=== PATIENT | female | born 1940 | race Caucasian/White ===

== ENCOUNTER 2018-03-25 20:23 | Emergency (ER) | payer OTHER ==
[~2018-03-25] VITALS: Ht 157.5 cm; Wt 61.2 kg
[~2018-03-25 20:23] MED LIST: ALBU.083IS IH; ALBU3IS INH; ALBU90OI INH; Duoneb 2.5-0.5 M3 ML INH; FLUSAL2505 IH; Guaifenesin Dm118 ML PO; Prednisone20 MG PO; Ventolin Soln3 ML INH; Zithromax250 MG PO
[2018-03-25 21:01] LABS: BASOPHILS ABSOLUTE AUTO 0.02 K/mm3 (0.00-0.23); BASOPHILS PERCENT AUTO 0 % (0-2); EOSINOPHILS ABSOLUTE AUTO 0.43 K/mm3 (0.00-0.68); EOSINOPHILS PERCENT AUTO 6 % (0-6); Hematocrit 36.4 % (33.0-51.0); Hemoglobin 12.2 g/dL (11.5-16.0); IMMATURE GRAN ABSOLUTE AUTO 0.01 K/mm3 (0.00-0.10); IMMATURE GRAN PERCENT AUTO 0 % (0-1); LYMPHOCYTES ABSOLUTE AUTO 2.57 K/mm3 (0.84-5.20); LYMPHOCYTES PERCENT AUTO 33 % (21-46); MONOCYTES ABSOLUTE AUTO 0.81 K/mm3 (0.16-1.47); MONOCYTES PERCENT AUTO 10 % (4-13); Mean Corpuscular HGB Conc 33.5 g/dL (31.5-36.5); Mean Corpuscular Volume 96 fL (80-100); Mean Platelet Volume 9.4 fL (9.1-12.4); NEUTROPHILS ABSOLUTE AUTO 4.03 K/mm3 (1.96-9.15); NEUTROPHILS PERCENT AUTO 51 % (41-73); Platelet Count 273 K/mm3 (150-400); RDW Coefficient Variation 12.3 % (11.7-14.2); RDW Standard Deviation 43.2 fL (35.1-46.3); Red Blood Cell Count 3.81 M/mm3 (3.80-5.20); White Blood Cell Count 7.87 K/mm3 (4.00-11.30)
[2018-03-25 21:19] LABS: Alanine Aminotransfer (ALT/SGP 22 U/L (12-78); Albumin, Blood 3.4 g/dL (3.4-5.0); Albumin/Globulin Ratio 0.8 (0.8-1.8); Alk Phos 72 U/L (50-136); Anion Gap 9 mmol/L (6-16); Aspartate Aminotrans (AST/SGOT 30 U/L (12-37); Bilirubin, Total 0.5 mg/dL (0.1-1.0); Blood Urea Nitrogen 23 mg/dL (8-24); Bun/Creatinine Ratio 28.3 (12.0-20.0); CO2, Blood 25 mmol/L (21-32); Calcium, Blood 8.8 mg/dL (8.5-10.1); Chloride, Blood 106 mmol/L (98-108); Creatinine, Blood 0.81 mg/dL (0.40-1.00); Globulin, Blood 4.2 g/dL (2.2-4.0); Glomerular Filtration Rate >60 (60-); Glucose, Blood 100 mg/dL (70-99); Potassium, Blood 3.7 mmol/L (3.5-5.5); Sodium, Blood 140 mmol/L (136-145); Total Protein, Blood 7.6 g/dL (6.4-8.2)
== END 2018-03-25 23:10 | disposition home or self-care (01) ==
LOC: ER 20:23
PROVIDERS: Emergency Medicine
DX: M25.551 Pain in right hip (principal); J44.9 Chronic obstructive pulmonary disease, unspecified; Z79.51 Long term (current) use of inhaled steroids; Z79.899 Other long term (current) drug therapy; Z87.891 Personal history of nicotine dependence
CPT/HCPCS: 36415; 73502; 80053; 83690; 85025; 96374; 99283-25; J2060

== ENCOUNTER 2018-06-20 10:25 | Day surgery (SDC) | payer OTHER ==
[~2018-06-20] VITALS: Ht 157.5 cm; Wt 57.3 kg
[~2018-06-20 10:25] MED LIST changes: +ALBU90OI61 INH; +Accuneb1.25 MG/3 INH; +Adult Low Dose81 MG PO; +B Complex #11 EACH PO; +FLUT1DIS5 INH; +LORA.5 PO; +POTASSIUM; +TIOT18 INH; +TURMERIC CURCUMIN; +Vitamin B-121000 MCG PO; +Voltaren100 GM TOP
== END 2018-06-20 12:51 | disposition home or self-care (01) ==
LOC: ORSCSDS 10:25
PROVIDERS: Internal Medicine Gastroenterology
PROC: 3E0H8GC Introduction of Other Therapeutic Substance into Lower GI, Via Natural or Artificial Opening Endoscopic (ICD-10-PCS; principal; 2018-06-20 11:30)
PROC: 0DBN8ZX Excision of Sigmoid Colon, Via Natural or Artificial Opening Endoscopic, Diagnostic (ICD-10-PCS; principal; 2018-06-20 11:30)
DX: K62.89 Other specified diseases of anus and rectum (principal); K59.00 Constipation, unspecified; J44.9 Chronic obstructive pulmonary disease, unspecified; J45.909 Unspecified asthma, uncomplicated; Z87.891 Personal history of nicotine dependence; Z79.82 Long term (current) use of aspirin; Z79.899 Other long term (current) drug therapy
CPT/HCPCS: 88305; J7120

== ENCOUNTER 2019-02-16 12:17 | Inpatient (IN) | payer OTHER ==
[~2019-02-16] VITALS: Ht 160 cm; Wt 61.1 kg
[2019-02-16 13:07] LABS: Hematocrit 32.9 % (33.0-51.0); Hemoglobin 10.8 g/dL (11.5-16.0); Mean Corpuscular HGB 29.4 pg (26.0-34.0); Mean Corpuscular HGB Conc 32.8 g/dL (31.5-36.5); Mean Corpuscular Volume 90 fL (80-100); Mean Platelet Volume 9.4 fL (9.1-12.4); Platelet Count 278 K/mm3 (150-400); RDW Coefficient Variation 13.4 % (11.7-14.2); RDW Standard Deviation 44.1 fL (35.1-46.3); Red Blood Cell Count 3.67 M/mm3 (3.80-5.20); White Blood Cell Count 3.42 K/mm3 (4.00-11.30)
[2019-02-16 13:17] LABS: Alanine Aminotransfer (ALT/SGP 9 U/L (12-78); Albumin, Blood 2.4 g/dL (3.4-5.0); Albumin/Globulin Ratio 0.7 (0.8-1.8); Alk Phos 52 U/L (50-136); Anion Gap 11 mmol/L (6-16); Aspartate Aminotrans (AST/SGOT 22 U/L (12-37); Bilirubin, Total 1.1 mg/dL (0.1-1.0); Blood Urea Nitrogen 22 mg/dL (8-24); Bun/Creatinine Ratio 35.9 (12.0-20.0); CO2, Blood 22 mmol/L (21-32); Calcium, Blood 8.1 mg/dL (8.5-10.1); Chloride, Blood 104 mmol/L (98-108); Creatinine, Blood 0.61 mg/dL (0.40-1.00); Globulin, Blood 3.6 g/dL (2.2-4.0); Glomerular Filtration Rate >60 (60-); Glucose, Blood 126 mg/dL (70-99); Potassium, Blood 3.8 mmol/L (3.5-5.5); Sodium, Blood 137 mmol/L (136-145)
[2019-02-16 14:35] LABS: BAND PERCENT MAN 30 % (0-8); BASOPHILS PERCENT MAN 0 % (0-2); EOSINOPHILS PERCENT MAN 0 % (0-6); LYMPHOCYTES ABSOLUTE MAN 0.27 K/mm3 (0.84-5.20); LYMPHOCYTES PERCENT MAN 8 % (21-46); METAMYELOCYTE ABSOLUTE MAN 0.23 K/mm3 (0.00-0.00); METAMYELOCYTE PERCENT MAN 7 % (0-0); MONOCYTES PERCENT MAN 0 % (4-13); SEG NEUTROPHILS PERCENT MAN 55 % (41-73); TOTAL CELLS COUNTED 100
--- NOTE | 2019-02-16 17:47 | NUR ---
02/16/19 1747 Atif Bennett BARNES CATH PLACED PER Khai SILVA
--- NOTE | 2019-02-16 20:30 | NUR ---
ADMIT RECEIVED FROM OR S/P SIGMOID COLECTOMY FOR PERFORATED COLON. PT IS INTUBATED- AC 14, TV 350, PEEP 5, FIO2 40%. ETT 7.0, 22@ LIP. MONITOR SHOWS NSR WITH ST ELEVATION NOTED IN II, III, AND AVF LEADS- DR. GRIMES AWARE. EKG PENDING. SBP 70s. MIDLINE ABDOMINAL INCISION WITH WOUND VAC IN PLACE. MAUDE DRAIN TO RIGHT ABDOMEN WITH SEROSANGUINOUS DRAINAGE. COLOSTOMY INTACT TO LEFT ABDOMEN- STOMA IS PINK. BARNES PATENT AND DRAINING NISHANT URINE. EXTREMITIES ARE PALE AND WARM, EXCEPT LEFT FOOT IS COOLER. PT RECEIVED 5L OF FLUID IN OR. BILATERAL SOFT WRIST RESTRAINTS IN PLACE TO PREVENT SELF-EXTUBATION.
[2019-02-16 21:30] LABS: PCO2 Arterial 41.2 mmHg (35-45); pH Blood Arterial 7.24 (7.35-7.45)
[2019-02-17 04:00] LABS: Hematocrit 31.9 % (33.0-51.0); Hemoglobin 10.3 g/dL (11.5-16.0); Mean Corpuscular HGB 29.4 pg (26.0-34.0); Mean Corpuscular HGB Conc 32.3 g/dL (31.5-36.5); Mean Corpuscular Volume 91 fL (80-100); Mean Platelet Volume 8.9 fL (9.1-12.4); Platelet Count 273 K/mm3 (150-400); White Blood Cell Count 7.83 K/mm3 (4.00-11.30)
[2019-02-17 04:19] LABS: Anion Gap 10 mmol/L (6-16); Blood Urea Nitrogen 19 mg/dL (8-24); Bun/Creatinine Ratio 27.2 (12.0-20.0); CO2, Blood 20 mmol/L (21-32); Calcium, Blood 7.3 mg/dL (8.5-10.1); Chloride, Blood 108 mmol/L (98-108); Glomerular Filtration Rate >60 (60-); Glucose, Blood 122 mg/dL (70-99); Potassium, Blood 3.9 mmol/L (3.5-5.5); Sodium, Blood 138 mmol/L (136-145)
--- NOTE | 2019-02-17 04:20 | NUR ---
SEDATION VACATION PROPOFOL ON STANDBY AT THIS TIME FOR AM WEANING TRIAL.
--- NOTE | 2019-02-17 05:25 | NUR ---
SEDATION/SBT SBT COMPLETE. PT BQACK TO AC VENTILATION. PROPOFOL RESTARTED AT 10MCG/KG/MIN.
[2019-02-17 05:28] LABS: PCO2 Arterial 34.6 mmHg (35-45); PO2 Arterial 75.8 mmHg (80-100); pH Blood Arterial 7.32 (7.35-7.45)
[2019-02-17 05:29] LABS: BAND PERCENT MAN 43 % (0-8); BASOPHILS PERCENT MAN 0 % (0-2); EOSINOPHILS PERCENT MAN 0 % (0-6); LYMPHOCYTES ABSOLUTE MAN 0.31 K/mm3 (0.84-5.20); LYMPHOCYTES PERCENT MAN 4 % (21-46); METAMYELOCYTE ABSOLUTE MAN 0.23 K/mm3 (0.00-0.00); METAMYELOCYTE PERCENT MAN 3 % (0-0); MONOCYTES ABSOLUTE MAN 0.54 K/mm3 (0.16-1.47); MONOCYTES PERCENT MAN 7 % (4-13); MYELOCYTE ABSOLUTE MAN 0.07 K/mm3 (0.00-0.00); MYELOCYTE PERCENT MAN 1 % (0-0); NEUTROPHILS ABSOLUTE MAN 6.65 K/mm3 (1.96-9.15); SEG NEUTROPHILS PERCENT MAN 42 % (41-73); TOTAL CELLS COUNTED 100
--- NOTE | 2019-02-17 06:17 | NUR ---
SHIFT SUMMARY NO ACUTE CHANGES DURING NOC. REMAINS INTUBATED- AC 16, TV 400, PEEP 5, FIO2 35%. RR 16-22. SX SMALL AMOUNT OLD BLOODY SECRETIONS FROM ETT. SEDATED WITH PROPOFOL BETWEEN 10-20MCG/KG/MIN- NOW INFUSING @ 20MCG/KG/MIN. OPENS EYES TO STIMULI. NODS HEAD YES/NO OCCASIONALLY. FOLLOWS SIMPLE COMMANDS. BILATERAL SOFT WRIST RESTRAINTS IN PLACE TO PREVENT SELF-EXTUBATION. MEDICATED WITH FENTANYL 50MCG IV X 3 DOSES DURING SHIFT FOR CNVI 1-08/08. ALSO MEDICATED WITH ATIVAN 2MG IV X 1 DOSE AN ADJUNCT TO SEDATION. MONITOR SHOWS NSR-ST, RATE 80-100s. BP STABLE WITH LEVOPHED BETWEEN 5-6MCG/MIN- NOW INFUSING @ 6MCG/MIN. VASOPRESSIN INFUSING @ 0.04UNITS/MIN. OG TO LIS WITH SCANT BROWN DRAINAGE. COLOSTOMY INTACT WITH SOFT BROWN STOOL. MAUDE DRAIN TO RIGHT ABDOMEN WITH A TOTAL OF 350CC SEROSANGUINOUS DRAINAGE. MIDLINE ABDOMINAL INCISION WITH WOUND VAC INTACT. BARNES PATENT AND DRAINING DARK YELLOW URINE. PAS TO BLE. NS INFUSING @ 150CC/HR PER ORDER.
--- NOTE | 2019-02-17 09:09 | NUR ---
PT SEDATED ON 20MCG PROPOFOL FOR MECH VENT. PT GRIMACES AND TURNS HEAD AWAY FROM ORAL CARE, DOES NOT OPEN EYES OR FOLLOW DIRECTIONS. PROPOFOL DECREASED TO 15MCG. LEVOPHED AT 7MCG WITH MAP >65, DECREASED TO 6MCG. WOUND VAC TO MIDLINE INCISION/INTACT AND DRAINING SM AMT OF SS FLUID. OBI DRAIN TO LEFT ABD DRAINING MOSTLY SEROUS FLUID. COLOSTOMY BAG W SOFT LIGHT BROWN STOOL, STOMA DARK RED/PURPLE. VERY HYPOACTIVE BT'S. S/O LES IN TO SEE PT THIS AM.
--- NOTE | 2019-02-17 09:34 | NUR ---
Late entry. Met with patient and SO in ER accompanyed to surgery. Brief supportive visit and expalined our role in helping with a care plan and symptom mangment. Patients SO relayed that pt has had significant childhood trauma and great fear of needles and medical care. Focus of preop with nurse Denise Lombardo was minimizing pt stess and fear of care.
--- NOTE | 2019-02-17 10:27 | NUR ---
DR GRIMES IN TO SEE PT, SEE NEW ORDERS. PLAN TO EXTUBATE, AND START EPIDURAL FOR PAIN CONTROL
--- NOTE | 2019-02-17 10:31 | NUR ---
ORDERS TO EXTUBATE. VASOPRESSIN OFF, NS DECREASED TO 75CC/HR PER DR GRIMES
--- NOTE | 2019-02-17 11:18 | NUR ---
FENTANYL/BUPIVACAINE VIA EPIDURAL STARTED AT CONT 10ML/HR (2MCG/ML). RT AT BEDSIDE TO EXTUBATE PT. PROP OFF, PT AWAKE AND FOLLOWING COMMANDS
--- NOTE | 2019-02-17 11:23 | NUR ---
PT EXTUBATED AT 1126, RESTAINTS REMOVED. N/C AT 4L
--- NOTE | 2019-02-17 11:25 | NUR ---
Patient on ventilator plan is extubation. will follow up with police chief on plan of care.
--- NOTE | 2019-02-17 14:33 | NUR ---
PT RHYTHM CHANGED FROM TACHY TO TACHY WITH LARGE AMT OF PAC'S, AND THEN TO SVT W RATE 160'S. SVT LASTED APPROX 10MIN W BP OF 90/44. BP IMPROVED WITH SINUS TACH. PAC'S REMAIN NUMEROUS. PT DID C/O OF LOW EPIGASTRIC ACHE PRIOR TO SVT, AND HAD BEEN MOVED PRIOR WELL. PT DID EXPERIENCE A GREAT DEAL OF ABD PAIN WHEN MOVED IN BED. EPIDURAL INTACT AND INFUSING. PT ALSO MUCH MORE AWAKE OVERALL. STAT MAG, PHOS, AND K ORDERED.
[2019-02-17 15:10] LABS: Magnesium, Blood 1.8 mg/dL (1.6-2.4)
[2019-02-17 15:11] LABS: Potassium, Blood 3.9 mmol/L (3.5-5.5)
--- NOTE | 2019-02-17 16:21 | NUR ---
LEVOPHED RESTARTED AT 4MCG. DR GRIMES PULLED CL BACK TO 16CM. 1GM MAG INFUSING. DR VERA IN TO SEE PT.
--- NOTE | 2019-02-17 17:07 | NUR ---
DNR STATUS REVIEWED W PT AND PT'S FAMILY. PT STATES THAT SHE WANTS TO BE DNR. PURPLE DNR BRACELET PLACED ON RIGHT WRIST AND OUTSIDE OF DOOR. IS AND FLUTTER VALVE GIVEN TO PT WITH INSTRUCTIONS
--- NOTE | 2019-02-17 19:00 | NUR ---
ASSUMED CARE ASSUMED CARE OF PATIENT. RESTING QUIETLY WHEN UNDISTURBED. DENIES C/O PAIN BUT FACIAL GRIMACING NOTED WITH REPOSITIONING. FENTANYL/BUPIVICAINE INFUSING VIA EPIDURAL PER ORDER. EPIDURAL SITE CLEAR. MOVES ALL EXTREMITIES WEAKLY. MONITOR SHOWS ST, RATE 100-110. LEVOPHED INFUSING @ 16MCG/MIN. REMAINS ON 4L NC. RESPIRATIONS SHALLOW, BUT EVEN AND UNLABORED. MIDLINE ABD INCISION INTACT WITH WOUND VAC NOTED. COLOSTOMY TO LEFT ABDOMEN WITH SOFT BROWN STOOL. STOMA IS DARK PURPLE. MAUDE DRAIN TO RIGHT ABDOMEN WITH THICK SEROSANGUINOUS DRAINAGE. BARNES PATENT AND DRAININT NISHANT URINE. NS INFUSING @ 75CC/HR. PAS TO BLE. SEE SHIFT ASSESSMENT FOR FULL ASSESSMENT.
[2019-02-17 19:28] LABS: Hematocrit 29.4 % (33.0-51.0); Hemoglobin 9.8 g/dL (11.5-16.0)
--- NOTE | 2019-02-17 19:40 | NUR ---
LEVOPHED INCREASED UP TO 16MCG FROM [address] GRIMES NOTIFIED. VASOPRESSIN RESTARTED. H&H DRAWN; RESULTS GIVEN TO DR GRIMES. PT AWAKE AND STATES PAIN IS TOLERABLE "OKAY" AND DOES NOT FEEL LIKE SHE NEEDS TO PUSH HUMAN MACHINE INTERFACE ENGINEER BUTTON AT THIS TIME. STOMA HAS DARKENED SIGNIFICANTLY FROM THIS AM; DR GRIMES NOTIFIED. BT'S CONT TO BE ABSENT, OBI DRAINING A CLOUDY S/S FLUID. REPORT GIVEN TO HEIDI RICE.
[2019-02-18 04:23] LABS: Hematocrit 27.5 % (33.0-51.0); Hemoglobin 9.1 g/dL (11.5-16.0); Mean Corpuscular HGB Conc 33.1 g/dL (31.5-36.5); Mean Corpuscular Volume 91 fL (80-100); Mean Platelet Volume 8.8 fL (9.1-12.4); Platelet Count 223 K/mm3 (150-400); RDW Coefficient Variation 14.2 % (11.7-14.2); RDW Standard Deviation 47.1 fL (35.1-46.3); Red Blood Cell Count 3.03 M/mm3 (3.80-5.20); White Blood Cell Count 15.95 K/mm3 (4.00-11.30)
[2019-02-18 04:41] LABS: Anion Gap 8 mmol/L (6-16); Blood Urea Nitrogen 22 mg/dL (8-24); Bun/Creatinine Ratio 25.1 (12.0-20.0); CO2, Blood 22 mmol/L (21-32); Calcium, Blood 7.5 mg/dL (8.5-10.1); Chloride, Blood 109 mmol/L (98-108); Creatinine, Blood 0.88 mg/dL (0.40-1.00); Glomerular Filtration Rate >60 (60-); Glucose, Blood 87 mg/dL (70-99); Potassium, Blood 3.8 mmol/L (3.5-5.5); Sodium, Blood 139 mmol/L (136-145)
[2019-02-18 04:53] LABS: BAND PERCENT MAN 33 % (0-8); BASOPHILS PERCENT MAN 0 % (0-2); EOSINOPHILS PERCENT MAN 0 % (0-6); LYMPHOCYTES ABSOLUTE MAN 0.47 K/mm3 (0.84-5.20); LYMPHOCYTES PERCENT MAN 3 % (21-46); METAMYELOCYTE ABSOLUTE MAN 0.15 K/mm3 (0.00-0.00); METAMYELOCYTE PERCENT MAN 1 % (0-0); MONOCYTES ABSOLUTE MAN 0.31 K/mm3 (0.16-1.47); MONOCYTES PERCENT MAN 2 % (4-13); MYELOCYTE ABSOLUTE MAN 0.15 K/mm3 (0.00-0.00); MYELOCYTE PERCENT MAN 1 % (0-0); NEUTROPHILS ABSOLUTE MAN 14.83 K/mm3 (1.96-9.15); SEG NEUTROPHILS PERCENT MAN 60 % (41-73); TOTAL CELLS COUNTED 100
--- NOTE | 2019-02-18 05:55 | NUR ---
AFIB MONITOR SHOWS AFIB WITH RVR, RATE 110-150s. EKG DONE. DR. GRIMES NOTIFIED AT THIS TIME- NEW ORDERS RECEIVED FOR AMIODARONE GTT AND BOLUS AND TO CHECK MAGNESIUM AND PHOSPHOROUS LEVELS.
[2019-02-18 06:16] LABS: Magnesium, Blood 2.2 mg/dL (1.6-2.4); Phosphorus, Blood 2.4 mg/dL (2.5-4.9)
--- NOTE | 2019-02-18 06:50 | NUR ---
SHIFT SUMMARY SLEPT WHEN UNDISTURBED. FENTANYL/BUPIVICAINE CONTINUE VIA EPIDURAL WITH STATED GOOD PAIN CONTROL. PT CONTINUES TO DENY PAIN, BUT GRIMACING AND MOANING NOTED WITH REPOSITIONING. CONTINUES WITH MODERATE GENERAL WEAKNESS. REMAINS ON 4L NC WITH STABLE SATS 94-96%. RESPIRATIONS SHALLOW, BUT EVEN AND UNLABORED. USES INCENTIVE SPIROMETER AND FLUTTER VALVE WITH ENCOURAGEMENT. AFIB WITH RVR, RATE 110-150s THIS AM- AMIODARONE BOLUS GIVEN AND AMIODARONE 1MG/MIN NOW INFUSING. LEVOPHED INFUSED BETWEEN 11-16MCG/MIN TO KEEP MAP >60- NOW INFUSING @ 12MCG/MIN. VASOPRESSIN INFUSING AT 0.04UNITS/MIN. NS INFUSING @ 75CC/HR. BARNES PATENT AND DRAINING NISHANT URINE- 550CC. MAUDE DRAIN WITH SERO-SANGUINOUS DRAINAGE. COLOSTOMY INTACT TO LEFT ABDOMEN. PAS TO BLE.
--- NOTE | 2019-02-18 08:43 | NUR ---
PT DOZING ON AND OFF, AWAKENS TO VOICE. DENIES C/O PAIN WHEN STILL, BUT HAS INCREASED PAIN 7/10 WHEN MOVED, TURNED, OR ENCOURAGED TO COUGH. FENT/BUPIVACAINE EPIDURAL INFUSING. EPIDURAL SITE WNL, DRSG C/D/I. PT HAS PROFOUNDLY WEAK COUGH, WORKING W IS AND FLUTTER VALVE, ENCOURAGED TO HOLD PILLOW OVER ABD W COUGH. LUNGS W CRACKLES TO LLL. SATS 96% ON 4L VIA N/C. ABD VERY TENDER TO PALP, ABSENT BOWEL TONES T/O. WOUND VAC PUMP IS HEARD ON AUSCUL. COLOSTOMY DRAINING LIQUID BROWN STOOL W MUCUS. STOMA IS BLACK/NECROTIC LOOKING. OBI IS DRAINING S/S WITH PURULENT DRAINAGE. THERE IS A FOUL ODOR PERMEATING AT BEDSIDE. LEVOPHED WAS DECREASED TO 10MCG, VASOPRESSIN INFUSING, WELL AMIO AT 1MG/MIN. NS AT 75CC/HR. PT'S RHTHYM FREQUENTLY CHANGES FROM NSR W FREQUENT PAC'S, TO TACHY, TO AFIB. PT BRIEFLY WENT INTO SVT DURING ECHO.
--- NOTE | 2019-02-18 10:16 | NUR ---
DR VERA IN TO SEE PT. COLOSTOMY BAG REMOVED REVEALING A DUSKY/PURPLE STOMA; NOT NAROTIC. OKAY TO GIVE PT SMALL SIPS OF CLEAR LIQUIDS PER DR VERA.
--- NOTE | 2019-02-18 11:38 | NUR ---
SMALL AMT OF S/S FLUID LEAKING FROM EPIDURAL SITE; DR ULLOA CALLED AND NOTIFIED. OKAY TO CONTINUE EPIDURAL. BASAL RATE DECREASED TO 8 D/T SOME SEDATION. MAY START LOVENOX, OKAY TO GIVE TONIGHT AND TUESDAY NIGHT WITH PLANS TO DC E AM; WILL NEED TO HOLD LOVENOX FOR 4-6 HR POST REMOVAL.
[2019-02-18 12:13] LABS: Source, Urine Catheter
[2019-02-18 12:22] LABS: Appearance, Urine Hazy (Clear); Bilirubin, Urine Neg (Neg); Blood, Urine 3+ (Neg); Color, Urine Yellow (P-Yellow); Glucose Qualitative, Urine Neg (Neg); Ketones, Urine Neg (Neg); Leukocyte Esterase, Urine Neg (Neg); Nitrite, Urine Neg (Neg); Protein, Urine 2+ (Neg); Urobilinogen, Urine NORM (Normal)
[2019-02-18 12:44] LABS: Amorphous Light ({null, 0-Heavy}); Bacteria Rare /hpf; Squamous Epithelial Cells Few /hpf (Few); White Blood Cells, Urine 0-2 /hpf (0-5)
[2019-02-18 12:45] LABS: Uric Acid Crystals Rare /hpf
--- NOTE | 2019-02-18 12:46 | NUR ---
AMIODARONE DECREASED TO 0.5MG/MIN PER ORDERS. DR GRIMES IN TO SEE PT.
--- NOTE | 2019-02-18 20:00 | NUR ---
PT SITTING UP IN BED. RESTS WITH EYE'S CLOSED WHEN UNDISTURBED. AWAKENS TO VOICE EASILY. PT IS A/O X4. DENIES PAIN WHEN LAYING STILL BUT WHEN MOVING IN BED SHE HAS SEVERE PAIN. PAIN SUBSIDES WHEN PT LAYS STILL AGAIN. HAS EPIDURAL WITH FENTANYL AND BUPIVACAINE AT 8ML/HR. ON LEVOPHED AND VASOPRESSIN. SEE FLOWSHEET. PT ABLE TO TOLERATE SIPS OF WATER. HAS BEEN USING FLUTTER VALVE AND IS APPROPRIATELY. COUGH IS GETTING STRONGER BUT STILL WEAK. HAS WOUND VAC TO MID ABD THAT IS PUTTING OUT SCANT AMT OF SEROSANGUINOUS FLUID. OBI DRAIN HAS PURULENT OUTPUT. THERE IS STRONG FOUL ODOR COMING FROM ABD. STOMA IS DUSKY PURPLE AND IS AWARE. SEE ASSESSMENT. CALL LIGHT IN REACH.
[2019-02-19 04:27] LABS: Hemoglobin 10.1 g/dL (11.5-16.0); Mean Corpuscular HGB 30.1 pg (26.0-34.0); Mean Corpuscular HGB Conc 33.7 g/dL (31.5-36.5); Mean Corpuscular Volume 90 fL (80-100); Mean Platelet Volume 9.5 fL (9.1-12.4); Platelet Count 196 K/mm3 (150-400); RDW Coefficient Variation 14.2 % (11.7-14.2); RDW Standard Deviation 46.6 fL (35.1-46.3); Red Blood Cell Count 3.35 M/mm3 (3.80-5.20); White Blood Cell Count 15.58 K/mm3 (4.00-11.30)
[2019-02-19 04:44] LABS: Alanine Aminotransfer (ALT/SGP 23 U/L (12-78); Albumin, Blood 1.5 g/dL (3.4-5.0); Albumin/Globulin Ratio 0.4 (0.8-1.8); Alk Phos 88 U/L (50-136); Anion Gap 7 mmol/L (6-16); Aspartate Aminotrans (AST/SGOT 40 U/L (12-37); Bilirubin, Total 0.8 mg/dL (0.1-1.0); Blood Urea Nitrogen 17 mg/dL (8-24); Bun/Creatinine Ratio 23.7 (12.0-20.0); CO2, Blood 24 mmol/L (21-32); Calcium, Blood 7.9 mg/dL (8.5-10.1); Chloride, Blood 109 mmol/L (98-108); Creatinine, Blood 0.72 mg/dL (0.40-1.00); Globulin, Blood 3.7 g/dL (2.2-4.0); Glomerular Filtration Rate >60 (60-); Glucose, Blood 78 mg/dL (70-99); Magnesium, Blood 2.2 mg/dL (1.6-2.4); Potassium, Blood 3.6 mmol/L (3.5-5.5); Sodium, Blood 140 mmol/L (136-145); Total Protein, Blood 5.2 g/dL (6.4-8.2)
[2019-02-19 04:53] LABS: BAND PERCENT MAN 15 % (0-8); BASOPHILS PERCENT MAN 0 % (0-2); EOSINOPHILS ABSOLUTE MAN 0.15 K/mm3 (0.00-0.68); EOSINOPHILS PERCENT MAN 1 % (0-6); LYMPHOCYTES ABSOLUTE MAN 0.15 K/mm3 (0.84-5.20); LYMPHOCYTES PERCENT MAN 1 % (21-46); MONOCYTES ABSOLUTE MAN 0.31 K/mm3 (0.16-1.47); MONOCYTES PERCENT MAN 2 % (4-13); NEUTROPHILS ABSOLUTE MAN 14.95 K/mm3 (1.96-9.15); SEG NEUTROPHILS PERCENT MAN 81 % (41-73); TOTAL CELLS COUNTED 100
--- NOTE | 2019-02-19 06:41 | NUR ---
SUMMARY PT RESTING IN BED. A/O X4. HAS EPIDURAL OF FENTANYL AND BUPIVACAINE. PT DOES NOT HAVE PAIN UNLESS SHE IS TURNING IN BED. OBI DRAIN HAS PURULENT SEROSANGINOUS FLUID, STOMA IS DUSKY PURPLE, AND FOUL ODOR COMING FROM ABD. WOUND VAC TO MID ABD IS INTACT WITH GOOD SUCTION. ONLY SCANT AMT OF DRAINAGE FROM WOUND VAC. PT HAS BEEN USING FLUTTER VALVE AND IS CONSISTENTLY. COUGH IS GETTING STRONGER. HAS BEEN OFF PRESSORS SINCE A LITTLE AFTER MIDNIGHT. CALL LIGHT IN REACH.
--- NOTE | 2019-02-19 09:16 | NUR ---
CARE ASSUMED, ASSESSMENT COMPLETED. PT RESTING IN BED, DENIES PAIN WHILE AT REST. FENTANYL/BUPIVACAINE EPIDURAL INFUSING AT 8ML/HR, AMIO SHUT OFF AT 0735, HR 70'S -80'S SINUS. ABD MILDLY DISTENDED, TENDER, GAURDED. BT PRESENT IN RIGHT QUADRANTS, ABSENT IN LEFT QUADRANTS. STOMA TO LLQ DUSKY, WHITAKER/GREEN IN COLOR, FOUL SMELLING. SMALL AMOUNT OF BROWN LIQUID OUTPUT FROM STOMA, COLOSTOMY BAG INTACT. MIDLINE ABD INCISION COVERED WITH WOUND VAC, DRESSING CDI. OBI DRAIN TO RLQ, DRESSING INTACT, SMALL AMOUNT OF SEROSANG DRAINAGE OUT. PT DENIES PAIN AT REST, IS PLEASANT AND COOPERATIVE WITH CARE, DENIES NAUSEA, SOB, OR CHEST PAIN/PRESSURE. VSS. IN TO VISIT.
--- NOTE | 2019-02-19 11:34 | NUR ---
0930: DR. VERA IN TO SEE PT, CONCERNS REGARDING COLOR AND ODOR OF STOMA BROUGHT TO DR'S ATTENTION BY THIS RN. REMOVED COLOSTOMY BAG TO ASSESS STOMA WHICH APPEARS DARK PURPLE WITHOUT BAG CLOUDING THE VIEW. STATES HE BELIEVES THAT BLOOD FLOW WILL IMPROVE NOW THAT PRESSORS ARE OFF, NO NEW ORDERS, COLOSTOMY BAG SEALED, NO LEAKAGE NOTED. DR. SYLVESTER AT BEDSIDE, EPIDURAL RATE DECREASED TO 6ML/HR PER ORDERS. 1015: DR. VERA RETURNS TO BEDSIDE AT THIS TIME TO REASSESS STOMA. STOMA MANIPULATED TO VIEW INNER ASPECT WHICH IS SLIGHTLY DUSKY BUT STILL PINK UNDER THE SURFACE, REPORTS THAT HE BELIEVES THE STOMA IS VIABLE, NO NEW ORDERS RE: STOMA. PT STATES SHE IS HUNGRY, NEW ORDER TO ADVANCE DIET TONY TO GEN. 1130: PT DENIES NAUSEA, SITTING IN BED EATING JELLO AND SIPPING JUICE, DENIES PAIN, EPIDURAL AND KPHOS INFUSING PER ORDERS. PASTORAL CARE AT BEDSIDE.
--- NOTE | 2019-02-19 13:36 | NUR ---
PT UP TO CHAIR WITH P/T AND RN ASSISTANCE USING GAIT BELT AND WALKER. GAIT STEADY, PT TOLERATED TRANSFER WELL. VSS, PT REMAINS SITTING UP, DENIES C/O. APPLE JUICE AND WATER GIVEN.
--- NOTE | 2019-02-19 14:59 | NUR ---
Pal Spiritual Care intial note: Met with Tere and her SO, Mauricio, at bedside. Both were welcoming of conversation and encouragement. It is clear this is a strong, loving relationship. Tere has no intention of pursuing medical treatment for her cancer. Both she and Mauricio are interested in learning how hospice services can help with Tere's QOL. Comfort and QOL is their paramount concern. We completed an Advanced Directive naming Mauricio as Tere's MPOA. Witnessed and signed, I hand carried a copy to Medical Records. Tere appears frail, but she smiles easily and appeared to enjoy prayer and guidence. Les was tearful, but appropriate. I will remain available.
--- NOTE | 2019-02-19 17:52 | NUR ---
1500: PT GIVEN BEDBATH, THEN BACK TO BED, TOLERATED WELL BUT IS TIRED AT THIS TIME. WARM BLANKETS GIVEN, PT RESTING WITH EYES CLOSED. 1700: PT CONTINUES TO REST, SLEEPING ON AND OFF, S/O AT BEDSIDE. NO CHANGES NOTED TO ABD THIS EVENING, STOMA REMAINS DARK PURPLE WITH SCANT OUTPUT, ABD TENDER TO PALPATION, BT ACTIVE ON RIGHT SIDE, ABSENT ON LEFT. 1750: PT SITTING UP IN BED EATING DINNER, REPORTS SHE HAS A GOOD APPETITE, TOLERATING FULL LIQUIDS WITHOUT DIFFICULTY. ABD REMAINS VERY TENDER, PT DENIES NAUSEA. OBI PATENT, DRESSINGS TO OBI AND WOUND VAC CDI. SMALL AMOUNT OF BROWN LIQUID FROM WOUND VAC THIS SHIFT. STOMA UNCHANGED, COLOSTOMY BAG INTACT, NO LEAKING AROUND APPARATUS NOTED. VSS, NS AND FENTANYL/BUPIVACAINE EPIDURAL ARE ONLY GTTS INFUSING AT THIS TIME, HR 80'S-90'S SINUS, PT DENIES CHEST PAIN/PRESSURE. MAP >65, GENERALIZED EDEMA REMAINS PRESENT. PT AFEBRILE T/O SHIFT, NO CHANGES NOTED TO STOMA SINCE THIS AM ASSESSMENT.
--- NOTE | 2019-02-19 18:59 | NUR ---
184: HR 112 SINUS, DR. SYLVESTER NOTIFIED, NEW ORDER FOR LASIX. SBP 120'S, MAP WNL. PT DENIES CHEST PAIN OR SOB, OTHER VSS, EPIDURAL REMAINS AT 6ML/HR. REPORT TO ONCOMING SHIFT.
--- NOTE | 2019-02-19 19:55 | NUR ---
PT RESTING IN BED. DENIES CP OR PRESSURE. EKG CHANGES NOTED. PT WENT BACK INTO AFIB AND THERE APPEARS TO BE SOME ST ELEVATION COMPARED TO LAST EKG. CALLED DR. SYLVESTER AND NEW ORDERS FOR AMIODORONE BOLUS AND GTT. ALSO ORDERED TROPONINS. PT IS ASYMPTOMATIC.
--- NOTE | 2019-02-19 21:00 | NUR ---
PT RESTING IN BED. HAS FENTANYL AND BUPIVACAINE EPIDURAL RUNNING AT 6ML/HR. PT IS A/O X4 AND COOPERATIVE WITH CARE. DENIES PAIN, N/V, OR SOB. HR 120'S-150'S AFIB. AMIODORONE HAS BEEN STARTED. PT HAS WOUND VAC TO MID ABD THAT HAS SMALL AMT OF LIGHT BROWN FLUID. OBI DRAIN HAS SANGUINOUS FLUID. STOMA IS DUSKY LIGHT PURPLE/KENT COLOR WITH FOUL ODOR. THERE IS SMALL AMT OF BROWN LIQUID STOOL IN APPLIANCE BAG. CALL LIGHT IN REACH. NO SIGN OF DISTRESS.
--- NOTE | 2019-02-19 23:25 | NUR ---
PT RESTING IN BED. CONVERTED FROM AFIB TO SR IN THE 70'S-80'S.
[2019-02-20 05:39] LABS: BASOPHILS ABSOLUTE AUTO 0.02 K/mm3 (0.00-0.23); BASOPHILS PERCENT AUTO 0 % (0-2); EOSINOPHILS ABSOLUTE AUTO 0.12 K/mm3 (0.00-0.68); EOSINOPHILS PERCENT AUTO 1 % (0-6); Hematocrit 25.6 % (33.0-51.0); Hemoglobin 8.6 g/dL (11.5-16.0); IMMATURE GRAN ABSOLUTE AUTO 0.14 K/mm3 (0.00-0.10); IMMATURE GRAN PERCENT AUTO 1 % (0-1); LYMPHOCYTES ABSOLUTE AUTO 0.69 K/mm3 (0.84-5.20); LYMPHOCYTES PERCENT AUTO 6 % (21-46); MONOCYTES ABSOLUTE AUTO 1.08 K/mm3 (0.16-1.47); MONOCYTES PERCENT AUTO 10 % (4-13); Mean Corpuscular HGB Conc 33.6 g/dL (31.5-36.5); Mean Corpuscular Volume 89 fL (80-100); Mean Platelet Volume 9.6 fL (9.1-12.4); NEUTROPHILS ABSOLUTE AUTO 9.15 K/mm3 (1.96-9.15); NEUTROPHILS PERCENT AUTO 82 % (41-73); Platelet Count 209 K/mm3 (150-400); RDW Coefficient Variation 14.1 % (11.7-14.2); RDW Standard Deviation 45.7 fL (35.1-46.3); Red Blood Cell Count 2.87 M/mm3 (3.80-5.20)
[2019-02-20 06:00] LABS: Alanine Aminotransfer (ALT/SGP 15 U/L (12-78); Albumin, Blood 1.3 g/dL (3.4-5.0); Albumin/Globulin Ratio 0.4 (0.8-1.8); Alk Phos 110 U/L (50-136); Anion Gap 7 mmol/L (6-16); Aspartate Aminotrans (AST/SGOT 26 U/L (12-37); Blood Urea Nitrogen 10 mg/dL (8-24); Bun/Creatinine Ratio 13.7 (12.0-20.0); CO2, Blood 29 mmol/L (21-32); Calcium, Blood 7.6 mg/dL (8.5-10.1); Chloride, Blood 108 mmol/L (98-108); Creatinine, Blood 0.73 mg/dL (0.40-1.00); Globulin, Blood 3.7 g/dL (2.2-4.0); Glomerular Filtration Rate >60 (60-); Glucose, Blood 96 mg/dL (70-99); Potassium, Blood 2.8 mmol/L (3.5-5.5); Sodium, Blood 144 mmol/L (136-145); Troponin I <0.015 ng/mL (0.000-0.040)
--- NOTE | 2019-02-20 06:16 | NUR ---
SUMMARY PT RESTING IN BED. GOOD PAIN CONTROL WITH EPIDURAL. WAS STARTED ON AMIODORONE FOR AFIB AND CONVERTED TO SR AT 2325. NO CHANGES WITH DRAIN, WOUND VAC, OR COLOR OF STOMA AND FOUL ODOR. ONLY SMALL AMT OF BROWN LOOSE STOOL FROM COLOSTOMY. NO SIGN OF DISTRESS. CALL LIGHT IN REACH.
--- NOTE | 2019-02-20 09:58 | NUR ---
DR. VERA BY TO SEE PT. SHOWED HIM PT'S STOMA AND OBI OUTPUT. NO NEW ORDERS. MD PLANS TO COME BACK TO CHANGE WOUND VAC LATER THIS MORNING. DR. VERA GAVE ORDERS TO HAVE VERSED READY FOR VAC CHANGE D/T PT'S ANXIETY WITH MEDICAL PROCEDURES. ALSO SPOKE WITH DR. ULLOA ABOUT PT'S EPIDURAL. LOVENOX HAS BEEN HELD FOR REMOVAL LATER TODAY. DR. ULLOA GAVE OK FOR EPIDURAL TO KEEP RUNNING UNTIL DC'D THIS EVENING.
--- NOTE | 2019-02-20 10:55 | NUR ---
PAL CARE VISIT - RETURNED TO ROOM AT PRE-PLANNED TIME. IN BED VISITING WITH TWO PEOPLE (UNSURE IF FAMILY) SITTNG IN ROOM. SIGNIFICANT OTHER, LES, IS NOT PRESENT. NATI STATES THEIR A/C IS OUT AND HE IS WORKING ON GETTING THAT FIXED. PT STATES SHE IS CURRENTLY VERY COMFORTABLE. EARLIER SHE WAS ANXIOUS DUE TO ANTICIPATING WOUND VAC DRESSING CHANGE AND RECEIVED MEDICATION AND DISCUSSED PREMED WITH RN. SHE HAS AN EPIDURAL AND STATES THAT HAS BEEN EFFECTIVE FOR PAIN MANAGEMENT. I OFFERED TO RETURN WHEN LES COMES IN AND PT STATES HE MAY BE STAYING HOME ALL DAY AND THAT IT IS NOT NECESSARY. TOLD HER I WOULD CHECK BACK THIS AFTERNOON AND F/U TOMORROW EITHER WAY. PT AND GUESTS DENY ANY OTHER NEEDS AT THIS TIME.
--- NOTE | 2019-02-20 11:16 | NUR ---
DR. VERA HERE AND CHANGED WOUND VAC. PT GIVEN 3MG VERSED AND 50MCG FENTANYL FOR PROCEDURE. BP AND SPO2 REMAINED STABLE THROUGHOUT. PT RESTING QUIETLY NOW. DR. VERA GAVE ORDERS TO MILK AND STRIP OBI DRAIN TUBING IN ORDER TO SEE IF THE PURULENT DISCHARGE IS OLD FROM THE TUBING OR NEW. CONTINUE TO MONITOR.
--- NOTE | 2019-02-20 13:35 | NUR ---
REASSESSMENT: PT REMAINS ALERT AND ORIENTED, CURRENTLY SITTING UP IN THE CHAIR. DR. VERA CHANGED HER WOND VAC DRESSING THIS MORNING. LUNGS ARE CLEAR, PT IS USING HER FLUTTER VALVE AND INCENTIVE SPIROMETER. SR, BP STABLE, AMIODARONE STILL INFUSING. DR. VERA GAVE OK TO ADVANCE PT'S DIET TO REGULAR. PHYSICAL THERAPY WORKED WITH PT AND GOT HER UP TO CHAIR, OCCUPATION THERAPY COMING TO SEE HER NOW. PT'S FRIENDS AND HAVE BEEN IN VISITING WITH HER. CONTINUING MONITOR.
--- NOTE | 2019-02-20 16:03 | NUR ---
EPidural infusion stopped in preparation for epidural to be removed. Pt getting PICC line placed currently. pain medication given to help with pt's pain and anxiety related to procedures.
--- NOTE | 2019-02-20 16:59 | NUR ---
SHIFT SUMMARY: PT HAS REMAINED ALERT AND ORIENTED THIS SHIFT. SHE IS STILL IN SR, BP STABLE. LUNGS CLEAR, 2L/NC. WOUND VAC REMAINS IN PLACE, WAS CHANGED TODAY. OBI BULB CHANGED PER DR. VERA, OUTPUT LOOKS MORE SEROUS NOW, BUT STILL PURULENT DRAINAGE IN TUBING. STOMA REMAINS WHITAKER, DR. VERA ASSESSED IT AND WAS ABLE TO SEE PINK TISSUE INSIDE THE STOMA BELOW THE SURFACE, CONTINUING TO MONITOR. MINIMAL AMT OF BROWN LIQUID IN OSTOMY BAG. BARNES WITH CL YELLOW OUTPUT. PICC LINE PLACED THIS AFTERNOON AND CENTRAL LINE DC'D PER DR. SYLVESTER. PT WAS ADVANCED TO REGULAR DIET BY DR. VERA AND IS TOLERATING IT WELL. STILL ONLY EATING SMALL AMTS THOUGH. AWAITING ANASTHESIA TO PULL EPIDURAL. CONTINUING TO MONITOR.
--- NOTE | 2019-02-20 17:53 | NUR ---
EPIDURAL REMOVED BY DR. ULLOA. PT TOLERATED WELL. PT EDUCATED NURSERY HAND LIGHT AND PAIN CONTROL MEASURES.
--- NOTE | 2019-02-20 19:30 | NUR ---
ASSUMED CARE PT IN BED, A&O X 4, REQUESTING REPOSITIONING. MEDICATED PER EMAR WITH FENTANYL. PT CONCERNED THAT SHE WILL BECOME "ADDICTED" EDUCATED ON NEED FOR PAIN CONTROL FOR MOBILITY AND BETTER FUNCTION. MIDLINE INCISION COVERED WITH WOULD VAC DRESSING THAT WAS CHANGED TODAY BY DR VERA AND HAS GOOD SEAL WITH MINIMAL DRAINAGE TO CONTAINER. OBI TO RLQ HAS SS FLUID WITH SOME SEDIMENT. STOMA TO LUQ KENT BUT HAS A SMALL AMOUNT OF SOFT STOOL IN BAG. PER AM RN, DR VERA IN AND AWARE. HE ALSO LOOKED INSIDE STOMA AND REPORTED PINK TISSUE AND THE KENT SHOULD SLOUGH OFF. AMIODARONE CONTINUES AT 0.5MG/MIN AND IS TO REMAIN ON UNTIL PT ABLE TO TAKE MEDS PO PER DR SYLVESTER. VSS, ECG SHOWS SR, O2 SATS MID 90'S ON 2 L.
[2019-02-21 04:18] LABS: Hematocrit 24.7 % (33.0-51.0); Hemoglobin 8.4 g/dL (11.5-16.0); Mean Corpuscular HGB 29.7 pg (26.0-34.0); Mean Corpuscular Volume 87 fL (80-100); Mean Platelet Volume 9.8 fL (9.1-12.4); NRBC ABSOLUTE 0.03 K/mm3 (0.00-0.02); NRBC Auto 0.2 /100 WBC (0.0-0.2); Platelet Count 203 K/mm3 (150-400); RDW Coefficient Variation 13.9 % (11.7-14.2); RDW Standard Deviation 43.5 fL (35.1-46.3); Red Blood Cell Count 2.83 M/mm3 (3.80-5.20); White Blood Cell Count 12.55 K/mm3 (4.00-11.30)
[2019-02-21 04:36] LABS: Anion Gap 6 mmol/L (6-16); Blood Urea Nitrogen 9 mg/dL (8-24); Bun/Creatinine Ratio 14.9 (12.0-20.0); CO2, Blood 29 mmol/L (21-32); Calcium, Blood 7.4 mg/dL (8.5-10.1); Chloride, Blood 106 mmol/L (98-108); Glomerular Filtration Rate >60 (60-); Glucose, Blood 95 mg/dL (70-99); Magnesium, Blood 1.7 mg/dL (1.6-2.4); Phosphorus, Blood 2.3 mg/dL (2.5-4.9); Potassium, Blood 3.2 mmol/L (3.5-5.5); Sodium, Blood 141 mmol/L (136-145)
[2019-02-21 04:38] LABS: BASOPHILS PERCENT MAN 0 % (0-2); EOSINOPHILS PERCENT MAN 4 % (0-6); LYMPHOCYTES ABSOLUTE MAN 0.87 K/mm3 (0.84-5.20); LYMPHOCYTES PERCENT MAN 7 % (21-46); MONOCYTES ABSOLUTE MAN 0.75 K/mm3 (0.16-1.47); MONOCYTES PERCENT MAN 6 % (4-13); NEUTROPHILS ABSOLUTE MAN 10.41 K/mm3 (1.96-9.15); PROMYELOCYTE ABSOLUTE MAN 0.12 K/mm3 (0.00-0.00); PROMYELOCYTE PERCENT MAN 1 % (0-0); SEG NEUTROPHILS PERCENT MAN 83 % (41-73); TOTAL CELLS COUNTED 150
--- NOTE | 2019-02-21 06:08 | NUR ---
SHIFT SUMMARY NO ACUTE EVENTS OVERNIGHT. PT TOLERATING WATER, DENIES NAUSEA. PT DOES HAVE ABD PAIN WITH MOVEMENT AND HAS REQUESTED FENTANYL WITH REPOSITIONING. NS AT 75ML/HR, AMIODARONE AT 0.5MG/MIN AND NS TKO. WOUND VAC OUTPUT OF 125ML MERCHANT FLUID, OBI HAD 50ML SS FLUID WITH YELLOW SEDIMENT. COLOSTOMY STOMA REMAINS KENT, SMALL AMOUNT OF STOOL IN COLOSTOY BAG. VSS, ECG SHOWS SR O2 SATS LOW 90'S OFF O2 AND MID 90'S ON 2L/NC.
--- NOTE | 2019-02-21 09:12 | NUR ---
0700-ASSUMED CARE OF PT. PT IS ALERT AND ORIENTED. PT HAS WOUND VAC TO MIDLINE INCISION. COLOSTOMY TO LEFT SIDE OF ABDOMEN, OBI DRAIN TO THE R ABDOMEN WITH SERROUS SANGUINOUS FLUID. PT IS ON AMIODARONE DRIP @ 0.5MG/MIN. PT HAS STATED SHE IS FEELING BETTER. 0715-PATIENT SEEN BY DR. VERA. UPDATED HIM OF PT'S STATUS. 0845-DR. NOVA CAME BY TO SEE PT. UPDATED HIM OF PT'S STATUS. 09-PT IS STILL EATING HER BREAKFAST AT THIS TIME.
--- NOTE | 2019-02-21 10:35 | NUR ---
MICHELET, MUSIC THERAPIST AT BEDSIDE. PLAYING FOR PATIENT.
--- NOTE | 2019-02-21 10:40 | NUR ---
Initial palliative care consult: Tere is a 78 year old lady with a history of COPD, asthma and a known sigmoid colon mass. She had a perforated colon and came into the hospital and had surgery. She has a new colostomy and currently has a wound vac on her abdomen and has a-fib. She reports that her epidural was taken out yesterday and is using prn medication for pain control. She currently rates her pain 9/10 and she states she was given pain medication about 10-15 minutes prior to my arrival. Offered to come back at a later time when her pain has decreased, however she stated she wanted to talk now. Les, her S.O. is at the bedside and she reports is very supportive. Tere reports she and Mauricio live in a fifth wheel trailor with their two cats. She reports she has 3 steps getting into the trailor and two more smaller stairs inside. She reports that prior to this admission she was independent with all ADLs and drove. She is now concerned of how this surgery and new diagnosis will effect her ability to care for herself. Handrails are avaiable in the fifth wheel. Discussed her current situation. She reports her colostomy she believes is permanent. She states the doctor hasn't told her yet if she will have surgery to close her open abd wound or if she will have the wound vac to close her wound. She reports that the pain medication is effective for pain management. Discussed transitioning to PO pain meds once she is taking in more PO. She reports she is starting to eat solid foods, she ate 10% of her breakfast. She reports she would have eaten more, however she over salted her eggs this am and didn't want to eat them. Declines a snack at this time. Denies N/V. She voiced concerns re: ostomy care. Encouragement given and brief ostomy care discussed. Pt will need ostomy care teaching prior to discharge. Discussed options of HH vs. hospice care. Tere was very clear in stating that she knows that she has cancer and that she does not want to seek any treatment for it. She is interested in symptom managment and increasing her QOL. She did become tearful as she reports Mauricio's first of cancer and she is worried that this will be hard on him. Discussed hospice services including bereavment support. If pt will need wound vac to close her wound she will likely not be able to have hospice services until the wound vac has been dc'd. Discussed going home with HH and transitioning to hospice as a possibilty. Information on HH and hospice services provided per her request. PC to follow in the coming days for symptom managment and advanced care planning.
--- NOTE | 2019-02-21 12:42 | NUR ---
PT IS HAVING AFIB WITH RVR AT THIS TIME. STILL ON AMIODARONE DRIP @ 0.5MG/MIN. DR. CATHERINE IS AWARE OF THIS. ORDERS RECEIVED. PT WAS HAVING SOME SLIGHT DIFFICULTY TAKING POTASSIUM PO. DR. LI WAS ALSO AWARE OF THIS.
--- NOTE | 2019-02-21 15:41 | NUR ---
1430-AMIODARONE DRIP WAS TURNED OFF AT THIS TIME. PT HAD RECEIVED HER FIRST PO DOSE OF AMIODARONE. PT IS CURRENTLY ON NORMAL SINUS RHYTHM. ASLEEP.
--- NOTE | 2019-02-21 17:35 | NUR ---
[facility] routine visit: Lengthy visit with spouse, Mauricio. Tere slept peacefully throughout visit. Les told me more of their life story today. He understands she is nearing end-of-life, but holds out hope for a miracle. He is becoming more interested in hospice services post-discharge and asked some great questions. He also asked some deep spiritual questions regarding God's love and the purpose of sickness/suffering. He responded well to gentle spiritual direction and prayer. I will continue to follow pt and spouse as rd permits.
--- NOTE | 2019-02-21 18:25 | NUR ---
SHIFT SUMMARY: PT HAD MOSTLY BEEN NAPPING IN THE AFTERNOON. DRESSING WAS CHANGED TO OBI DRAIN SITE, REINFORCED DRESSING TO THE COLOSTOMY. PT HAS BEEN RECEIVING FENTANYL 50MCG PRN FOR PAIN. T MAX 99.5. PT WAS ABLE TO TOLERATE SMALL BITES OF FOOD. AMIODARONE DRIP IS OFF. PO AMIODARONE WAS STARTED. PT HAD EPISODES OF AFIB WITH RVR. CURRENTLY PT IS IN THE SINUS RHYTHM.
--- NOTE | 2019-02-22 03:33 | NUR ---
WOUND VAC DRESSING CHANGE COLOSTOMY DEVICE LEAKING, PLACED UNDERNEATH WOUND VAC DRESSING SO STOOL NOW IN WOUND VAC DRESSING WELL. BOTH DRESSINGS CHANGED, PT TOLERATED POORLY D/T PAIN. WOUND VAC BACK ON WITH GOOD SUCTION. PLAN TO HAVE AM RN LOOK AT DRESSING.
[2019-02-22 03:37] LABS: BASOPHILS ABSOLUTE AUTO 0.02 K/mm3 (0.00-0.23); BASOPHILS PERCENT AUTO 0 % (0-2); EOSINOPHILS ABSOLUTE AUTO 0.18 K/mm3 (0.00-0.68); EOSINOPHILS PERCENT AUTO 1 % (0-6); Hematocrit 24.4 % (33.0-51.0); Hemoglobin 8.2 g/dL (11.5-16.0); IMMATURE GRAN ABSOLUTE AUTO 0.47 K/mm3 (0.00-0.10); IMMATURE GRAN PERCENT AUTO 3 % (0-1); LYMPHOCYTES ABSOLUTE AUTO 0.85 K/mm3 (0.84-5.20); LYMPHOCYTES PERCENT AUTO 6 % (21-46); MONOCYTES ABSOLUTE AUTO 0.89 K/mm3 (0.16-1.47); MONOCYTES PERCENT AUTO 6 % (4-13); Mean Corpuscular HGB 29.2 pg (26.0-34.0); Mean Corpuscular HGB Conc 33.6 g/dL (31.5-36.5); Mean Corpuscular Volume 87 fL (80-100); Mean Platelet Volume 9.2 fL (9.1-12.4); NEUTROPHILS ABSOLUTE AUTO 12.29 K/mm3 (1.96-9.15); NEUTROPHILS PERCENT AUTO 84 % (41-73); NRBC ABSOLUTE 0.02 K/mm3 (0.00-0.02); NRBC Auto 0.1 /100 WBC (0.0-0.2); Platelet Count 217 K/mm3 (150-400); RDW Coefficient Variation 14.1 % (11.7-14.2); RDW Standard Deviation 44.3 fL (35.1-46.3); Red Blood Cell Count 2.81 M/mm3 (3.80-5.20)
[2019-02-22 03:51] LABS: Anion Gap 6 mmol/L (6-16); Blood Urea Nitrogen 9 mg/dL (8-24); CO2, Blood 29 mmol/L (21-32); Calcium, Blood 7.5 mg/dL (8.5-10.1); Chloride, Blood 106 mmol/L (98-108); Glomerular Filtration Rate >60 (60-); Glucose, Blood 97 mg/dL (70-99); Magnesium, Blood 1.7 mg/dL (1.6-2.4); Phosphorus, Blood 3.4 mg/dL (2.5-4.9); Potassium, Blood 3.7 mmol/L (3.5-5.5); Sodium, Blood 141 mmol/L (136-145)
--- NOTE | 2019-02-22 06:15 | NUR ---
SHIFT SUMMARY NO ACUTE EVENTS OVERNIGHT. WOUND VAC AND COLOSTOMY DRESSINGS APPEAR TO BE HOLDING. TONIGHT PT HAD MORE PAIN AND MORE DIFFICULTY SLEEPING AND WAS MEDICATED PER EMAR WITH FENTANYL. NS AT 75ML/HR, PT TAKING SIPS OF WATER BUT DID NOT WANT ANY FOOD THIS SHIFT. OBI OUTPUT OF 120ML, UNKNOWN IN WOUND VAC D/T STOOL CONTAMINATION. VSS, ECG SHOWS SR AND O2 SATS >90 ON 2L/NC.
--- NOTE | 2019-02-22 08:10 | NUR ---
INITIAL ASSESSMENT PATIENT ALERT AND ORIENTED X 4. PATIENT TEMP OF 99.6 DEGREES FAHRENHEIT. PATIENT ANXIOUS AT TIMES. PATIENT VERY WEAK BUT ATTEMPTS TO HELP WITH REPOSITIONING. PATIENT COMPLAINS OF PAIN IN ABDOMEN ONLY WITH MOVING/ REPOSITIONING. PATIENT COMPLAINS OF CONSTANT, BURNING RECTAL PAIN, WHICH SHE REPORTS SHE HAD BEFORE BEING ADMITTED TO THE UNIT. PATIENT SATTING WELL ON 2 L NC. PATIENT HAS CRACKLES IN RLL, LOWER LOBES DIMINISHED, UPPER LOBES CLEAR TO AUSCULTATION. PATIENT HAS OCCASIONALLY PRODUCTIVE, THICK, YELLOW PHLEGM. PATIENT HAS BEEN USING IS AND FLUTTER VALVE. PATIENT IN SR, HR 80S TO 90S. BP STABLE. PATIENT ON SCHEDULED PO AMIO. SCDS IN PLACE. ABDOMEN MILDLY DISTENDED, TENDER, GUARDED, WITH NORMOACTIVE BS NOTED. PATIENT HAS LLQ STOMA- COLOSTOMY BAG IN PLACE- LOOSE, BROWN DRAINAGE NOTED. PATIENT HAS POOR APPETITE. BARNES DRAINING CLEAR/ YELLOW URINE. OBI DRAIN TO RLQ DRAINING SEROUS FLUID. WOUNDVAC TO MIDLINE INCISION. GENERALIZED EDEMA NOTED. NS AT 75 MLS/ HOUR AND NS TKO. BED LOW, CALL LIGHT IN REACH. AT BEDSIDE. WILL CONTINUE TO MONITOR PATIENT FREQUENTLY THROUGHOUT SHIFT.
--- NOTE | 2019-02-22 11:06 | NUR ---
INFORMED DR. KENNY GARCIA THAT PATIENT HAS GONE BACK INTO A. FIB, HR 80S TO 120S. NO ORDERS OBTAINED AT THIS TIME.
--- NOTE | 2019-02-22 11:10 | NUR ---
INFORMED DR. KENNY GARCIA THAT PATIENT WBC INCREASING, TEMP OF 100.0 DEGREES FAHRENHEIT DURING GENERAL SALES MANAGER. TEMP OF 99.6 DEGREES FAHRENHEIT THIS AM. INFORMED THAT PATIENT IS ON ZOSYN BUT THAT SHE HAS A VERY WEAK COUGH. IS AWARE OF PATIENT'S COMPLAINTS OF PAIN. PLACING ORDERS NOW.
--- NOTE | 2019-02-22 11:16 | NUR ---
SPOKE WITH DR. VERA AND INFORMED THAT WBCS INCREASING, THAT TEMP 100 DEGREES FAHRENHEIT DURING THE NIGHT. INFORMED THAT DR. KENNY GARCIA ORDERING SPUTUM CULTURE AND CHEST XRAY. INFORMED THAT PATIENT HAS BEEN COMPLAINING OF RECTAL PAIN. STATED THAT HE WAS GOING TO PLACE ORDER FOR SCAN OF ABDOMEN.
--- NOTE | 2019-02-22 11:29 | NUR ---
OCCUPATIONAL THERAPY IN ROOM WITH PATIENT.
--- NOTE | 2019-02-22 11:58 | NUR ---
DR. VERA IN TO SEE PATIENT.
--- NOTE | 2019-02-22 12:29 | NUR ---
PATIENT RESTING QUIETLY IN BED WITH AT SIDE. PATIENT AFEBRILE. PATIENT STATES THAT HER BIGGEST COMPLAINT IS THE BURNING IN HER RECTUM BUT THAT IT IS BETTER AFTER THE PO PAIN PILL. PATIENT REMAINS SATTING WELL ON 2 L NC. PATIENT FOUND TO BE IN A.FIB AROUND [address] KENNY GARCIA AWARE AND WE ARE CONTINUE TO MONITOR. HR 80S T0 1-TEENS. BP STABLE. NO OTHER CHANGES TO NOTE ON AT THIS TIME. WILL CONTINUE TO MONITOR.
--- NOTE | 2019-02-22 12:30 | NUR ---
PATIENT TAKEN TO ABDOMINAL CT SCAN.
--- NOTE | 2019-02-22 12:57 | NUR ---
PATIENT BACK FROM CT.
--- NOTE | 2019-02-22 15:39 | NUR ---
patient was at CT review with nursing history of patient and her expressed wishes in ER and to the chaplian. Will review ofater diagnostics for plan of care.
--- NOTE | 2019-02-22 15:51 | NUR ---
DR VERA AT BEDSIDE TO DISIMPACT STOOL FROM RECTUM. PT GIVEN VERSED 3MG AND FENTANYL 75MCG PER DR ORDERS FOR PROCEDURE. PROCEDURE TOOK APPROX 5MIN; PAINFUL FOR PT BUT ADEQUATELY SEDATED OVERALL. 02 INCREASED TO 4L VIA N/C FOR SEDATION. PT HYPOTENSIVE POST SEDATION BUT W MAP >59. SATS 96-97%. DR REMOVED SMALL HANDFUL OF HARD STOOL, DRAIN PLACED TO RECTUM, OKAY TO REMOVE DRAIN IF PT DOESNT TOLERATE IT.
--- NOTE | 2019-02-22 16:03 | NUR ---
HYPOTENSION DISCUSSED W DR COX; WILL CONTINUE TO MONITOR PT CLOSELY FOR NOW, PT OPENS EYES TO VOICE
--- NOTE | 2019-02-22 17:00 | NUR ---
PATIENT RESTING QUIETLY IN BED. VISITING WITH AT BEDSIDE. TEMP OF 99.0 DEGREES FAHRENHEIT. PATIENT IN SR, HR IN THE 80S. BP STABLE. NO OTHER CHANGES TO NOTE ON AT THIS TIME. WILL CONTINUE TO MONITOR.
--- NOTE | 2019-02-22 18:13 | NUR ---
Pal Spiritual care routine visit: Lengthy visit with Tere and later, with spouse, Mauricio outside of room. Tere was tearful and weak, She wants more than anything to be home. She does not want to suffer anymore and expresses a mixture of sorrow and peace with . She responded well to end-of-life spiritual direction and student services counselor. Tere and Mauricio both tell me they are waiting to know if a physician recommends hospice. They have been told that Tere is going to succumb to her cancer, but they have not been given a clear and direct answer to the hospice question. They admit, they haven't asked b/c Tere does not want to know "how much time I have left. I don't want to lay around watching the calender." Advised they ask if she's "hospice appropriate" rather than "how much time is left." [facility] and a clear path. Counseled Mauricio later in the day in ICU waiting with good outcome. [employer] will remain available.
--- NOTE | 2019-02-22 18:53 | NUR ---
Theraputic vivist with patient and SO on her needs. She desires to go home carefully acknowledged her desires and fears. Advised will review with physicians best plan to give her quality of life and as much comfort as we can. gave her some flavored chapstick and some lavender to help her with diversion of thought and non pharmacologic pain control.
--- NOTE | 2019-02-22 19:30 | NUR ---
SHIFT SUMMARY PATIENT REMAINED ALERT AND ORIENTED T/O SHIFT. PATIENT HAD TMAX OF 99.6 DEGREES FAHRENHEIT. PATIENT VERY WEAK, BUT ATTEMPTS TO HELP WITH REPOSITIONING. PATIENT COMPLAINED OF PAIN TO ABDOMEN WITH REPOSITIONING/ MOVEMENT AND CONSTANT, BURNING PAIN IN RECTUM. PATIENT REPORTED MORE RELIEF AFTER PO PAIN MEDICATION STARTED TODAY. PATIENT ALSO LIKES TO HAVE HER LEGS LIFTED ON MANY PILLOWS TO HELP THE PAIN. PATIENT CONTINUED TO HAVE WEAK COUGH. PATIENT REMAINED SATTING 90% AND GREATER ON 2 L NC. PATIENT SWITCHED BACK AND FORTH BETWEEN SR AND A.FIB DURING THE SHIFT. 2.5 MG IV LOPRESSOR GIVEN OT FOR HR 130S TO 160S. HR STABLE REST OF THE SHIFT AFTER. BP LOW AFTER MEDICATION ADMINISTRATION FOR IN UNIT PROCEDURE BY DR. VERA, OTHERWISE BP STABLE. COLOSTOMY PUT OUT 100 MLS LOOSE, BROWN STOOL. PATIENT APPETITE IMPROVING PER HER AND HER . BARNES REMAINED DRAINING CLEAR/ YELLOW URINE. NS INFUSING AT 75 MLS/ HOUR. DR. VERA TO ROOM TODAY TO EVACUATE STOOL THAT WAS FOUND TO BE REMAINING ON ABDOMINAL CT. ALSO PLACED "RECTAL STENT". PATIENT HAS NO COMPLAINTS AT THIS TIME. BED LOW, CALL LIGHT IN REACH. REPORT HAS BEEN GIVEN TO ASSUMING LABORER GOLF COURSE NURSE.
--- NOTE | 2019-02-22 20:17 | NUR ---
ASSUMED CARE PT SUPINE IN BED WITH LEGS ELEVATED ON PILLOWS. PT REPORTS THIS HELPS WITH RECTAL PAIN. MIDLINE WOUND VAC DRESSING AND LUQ COLOSTOMY DRESSING WNL. OBI TO RLQ HAS PINKISH/YELLOW FLUID IN BULB. STOMA REMAINS KENT AND UNCHANGED AND THERE IS A SMALL AMOUNT OF LIQUID STOOL IN THE OSTOMY BAG. PER AM RN, PT HAD RUNS OF AFIB TODAY WITH CONVERSION AFTER 2.5MG IV LOPRESSOR, WILL MONITOR FOR RETURN OF AFIB. PT CURRENTLY IN SR, O2 SATS 96% ON 2L/NC AND BP STABLE. NS AT 75ML/HR.
--- NOTE | 2019-02-23 06:16 | NUR ---
SHIFT SUMMARY NO ACUTE EVENTS OVERNIGHT. PT CONTINUES TO REPORT RECTAL PAIN BUT PAIN BETTER MANAGED WITH PO NORCO THIS SHIFT, PT REQUIRED ONLY 2 DOSES OF 25MCG OF FENTANYL FOR SEVERE PAIN. WOUND VAC REMAINS IN PLACE W/ 50ML DRAINAGE, OBI WITH ONLY 20ML FOR SHIFT OF YELLOW/CLOUDY FLUID. UOP OF 3L AFTER 20MG LASIX. NS AT 75ML/HR AND PT TAKING SMALL SIPS OF WATER T/O SHIFT. O2 AT 2L/NC WITH SATS MID 90'S, BP STABLE AND PT'S TEMP INITIALLY 100 NOW 98.2. NO AM LABS, WILL INFORM AM RN.
--- NOTE | 2019-02-23 08:25 | NUR ---
AM NOTE. ASSUMED CARE OF PT APROX 0700, PT IS A&Ox4. PT IS S/P COLECTOMY WITH COLOSTOMY PLACEMENT. STOMA IS GRAYISH IN COLOR, PROVIDER IS AWARE. THE IS SMALL AMOUNT OF BROWN STOOL IN BAG. PT IS C/O OF SEVERE RECTAL PAIN, PT STATES SHE HAS HAD THIS PAIN SINCE BEFORE ADMIT. SMALL RECTAL TUBE WAS PLACED IN HOPES TO DRAIN STOOL LEFT FROM COLECTOMY, NO DRAINAGE HAS BEEN NOTED. MIDLINE INCISION IS COVERED WITH WOUND VAC. WOUND VAC HAS GOOD SUCTION AT THIS TIME, DRESSINGS WERE CHANGED 02/22 NOC SHIFT PER NOC RN. BARNES IS PATENT AND DRAINING TO GRAVITY. PT HAS SEVERE 9/10 PAIN WITH ANY MOVEMENT. PT'S VS STABLE AT THIS TIME. PT NSR IN THE 80'S WITH HX OF FLIPPING INTO AFIB PER NOC RN. L/S CLEAR T/O AND DIM IN THE BASES. PT HAS TRACE EDEMA T/O BODY. CALL LIGHT IN REACH, WILL CONTINUE TO MONITOR.
[2019-02-23 11:34] LABS: BASOPHILS ABSOLUTE AUTO 0.03 K/mm3 (0.00-0.23); BASOPHILS PERCENT AUTO 0 % (0-2); EOSINOPHILS ABSOLUTE AUTO 0.29 K/mm3 (0.00-0.68); EOSINOPHILS PERCENT AUTO 2 % (0-6); Hematocrit 22.3 % (33.0-51.0); Hemoglobin 7.5 g/dL (11.5-16.0); IMMATURE GRAN ABSOLUTE AUTO 0.24 K/mm3 (0.00-0.10); IMMATURE GRAN PERCENT AUTO 2 % (0-1); LYMPHOCYTES ABSOLUTE AUTO 0.74 K/mm3 (0.84-5.20); LYMPHOCYTES PERCENT AUTO 5 % (21-46); MONOCYTES ABSOLUTE AUTO 0.72 K/mm3 (0.16-1.47); MONOCYTES PERCENT AUTO 5 % (4-13); Mean Corpuscular HGB 29.2 pg (26.0-34.0); Mean Corpuscular HGB Conc 33.6 g/dL (31.5-36.5); Mean Corpuscular Volume 87 fL (80-100); Mean Platelet Volume 10.2 fL (9.1-12.4); NEUTROPHILS ABSOLUTE AUTO 12.85 K/mm3 (1.96-9.15); NEUTROPHILS PERCENT AUTO 86 % (41-73); Platelet Count 257 K/mm3 (150-400); RDW Coefficient Variation 14.1 % (11.7-14.2); RDW Standard Deviation 43.7 fL (35.1-46.3); Red Blood Cell Count 2.57 M/mm3 (3.80-5.20); White Blood Cell Count 14.87 K/mm3 (4.00-11.30)
--- NOTE | 2019-02-23 11:53 | NUR ---
PT UPDATE... SURGICAL PROVIDER AT THE BEDSIDE, GAVE VERBAL ORDERS TO CHANGE THE PT'S WOUND VAC WITH SEDATION IN THE ICU PRIOR TO TRANSFER OUT TO SURGICAL FLOOR.
--- NOTE | 2019-02-23 12:55 | NUR ---
PT UPDATE... WOUND VAC WAS CHANGED USING SEDATION OF 2 MG OF VERSED AND 100 MCG OF FENTANYL. PT STATED SHE STILL EXPERIENCED A "SEVERE" AMOUNT OF PAIN. THERE IS NO LEAK IN THE SEAL AT THIS TIME. PT IS STILL C/O OF 9/10 PAIN AND DISCOMFORT. PT IS TO BE TRANSFERED TO SURGICAL FLOOR. WILL CONTINUE TO MONITOR.
--- NOTE | 2019-02-23 12:58 | NUR ---
Met briefly with Tere this morning prior to having her wound vac changed. She states today she is feeling much better. She reports her breathing has improved. She doesn't have any abd incisional pain, she c/o pain in her rectum. She reports that the fentanyl that she receives takes the rectal pain away. No further stools from rectum at this time. Ostomy bag has flatus present. She and Les both state they feel informed by the doctors and are looking for their advice in making decisions going forward. She has no questions or concerns at this time. This visit cut short as bedside nursing is ready to change her wound vac. PC will continue to follow for symptom management and assisting with advanced care planning decisions.
--- NOTE | 2019-02-23 14:26 | NUR ---
PT ARRIVED TO THE FLOOR. SHE IS A&O X4, RESP UNLABORED, 2 L O2 VIA NC. BOWEL SOUNDS ACTIVE X4, STOMA IS GREYISH PURPLE, ICU NURSE REPORTED THAT PHYSICIAN IS AWARE. NO STOOL NOTED IN OSTOMY BAG. MIDLINE WOUND VAC IN PLACE, SUCTION IS SEALED. BARNES PATENT, NISHANT URINE NOTED IN BARNES BAG. PT'S BELONGINGS PLACED AT BEDSIDE. HER IS AT THE BEDSIDE AND ASSIST'S WITH CARE. CALL LIGHT IN REACH.
--- NOTE | 2019-02-23 16:47 | NUR ---
met with kalani and SELINA lizarraga today. They are anxious to go home. Looking to decide weather they go with home health or hospice. Review of plan of care with them. Will see if hospice will consider her would vac as patient will need continued symptom manamgement which may be complex. She is not seeking treament and would have more support from hospice. Would eliminate haveing to come to hospital or appointments which fits her [facility] and her needs.
--- NOTE | 2019-02-23 17:50 | NUR ---
SUMMARY NO ACUTE CHANGES SINCE ADMISSION TO THE FLOOR, VSS. PT REMAINS A&O X4, IN GOOD SPIRITS, CALLS FOR ASSISSTANCE PRN. TOLERATING PO INTAKE. 1 NORCO GIVEN FOR PAIN. NS @ 75 ML/HR. REPORT GIVEN TO REECE RICE
[2019-02-24 05:03] LABS: Hematocrit 25.1 % (33.0-51.0); Hemoglobin 8.5 g/dL (11.5-16.0); Mean Corpuscular HGB 29.7 pg (26.0-34.0); Mean Corpuscular HGB Conc 33.9 g/dL (31.5-36.5); Mean Corpuscular Volume 88 fL (80-100); Mean Platelet Volume 9.7 fL (9.1-12.4); Platelet Count 285 K/mm3 (150-400); RDW Coefficient Variation 14.2 % (11.7-14.2); RDW Standard Deviation 43.8 fL (35.1-46.3); Red Blood Cell Count 2.86 M/mm3 (3.80-5.20); White Blood Cell Count 14.14 K/mm3 (4.00-11.30)
[2019-02-24 05:25] LABS: Alanine Aminotransfer (ALT/SGP 12 U/L (12-78); Albumin, Blood 1.4 g/dL (3.4-5.0); Albumin/Globulin Ratio 0.4 (0.8-1.8); Alk Phos 131 U/L (50-136); Anion Gap 6 mmol/L (6-16); Aspartate Aminotrans (AST/SGOT 21 U/L (12-37); Bilirubin, Total 0.5 mg/dL (0.1-1.0); Blood Urea Nitrogen 10 mg/dL (8-24); Bun/Creatinine Ratio 16.5 (12.0-20.0); CO2, Blood 30 mmol/L (21-32); Calcium, Blood 7.6 mg/dL (8.5-10.1); Chloride, Blood 103 mmol/L (98-108); Creatinine, Blood 0.61 mg/dL (0.40-1.00); Globulin, Blood 3.9 g/dL (2.2-4.0); Glomerular Filtration Rate >60 (60-); Glucose, Blood 94 mg/dL (70-99); Magnesium, Blood 1.9 mg/dL (1.6-2.4); Phosphorus, Blood 2.5 mg/dL (2.5-4.9); Potassium, Blood 3.4 mmol/L (3.5-5.5); Sodium, Blood 139 mmol/L (136-145); Total Protein, Blood 5.3 g/dL (6.4-8.2)
[2019-02-24 05:29] LABS: BASOPHILS PERCENT MAN 0 % (0-2); EOSINOPHILS ABSOLUTE MAN 0.14 K/mm3 (0.00-0.68); EOSINOPHILS PERCENT MAN 1 % (0-6); LYMPHOCYTES ABSOLUTE MAN 0.56 K/mm3 (0.84-5.20); LYMPHOCYTES PERCENT MAN 4 % (21-46); MONOCYTES ABSOLUTE MAN 0.42 K/mm3 (0.16-1.47); MONOCYTES PERCENT MAN 3 % (4-13); SEG NEUTROPHILS PERCENT MAN 92 % (41-73); TOTAL CELLS COUNTED 100
--- NOTE | 2019-02-24 07:13 | NUR ---
SUMMARY PT REQUIRING PO AND IV PAIN MEDS TONIGHT, BUT REPORTS SATISF EFFECT. PT WEAK. REPOSITIONED IN BED WITH 2 ASSIST. DENIES NAUSEA. SCANT LIQ WATERY MERCHANT OUTPUT VIA BARNES NOTED RECTAL TUBE. SIGNIFICANT LABIAL SWELLING POTENTIALLY WILL CAUSE DIFF VOIDING.WILL BE CALLING REGARDING TUBE VIA RECTUM WHICH I COVERED WITH STERIL GAUZE AND REGARDING BARNES.
--- NOTE | 2019-02-24 18:31 | NUR ---
SHIFT SUMMARY PAIN HAS BEEN MANAGED WITH PO AND IV PAIN MEDICATION THIS SHIFT. PT IS A 1 ASSIST TO STAND AT THE EDGE OF THE BED. RECTAL DRAIN REMAINS IN PLACE, PT COMPLAINS OF PAIN R/T DRAIN, MINIMAL MILKY, WHITAKER COLORED DISCHARGE FROM DRAIN. SIMILAR DISCHARGE FROM ABD INCISION. STOMA REMAINS PALE, NO FLATUS OR STOOL OUT THIS SHIFT. PT IS TOLERATING A REGULAR DIET. VSS. WILL MONITOR UNTIL REPORT TO ONCOMING RN.
[2019-02-25 04:24] LABS: Hematocrit 23.9 % (33.0-51.0); Mean Corpuscular HGB 29.5 pg (26.0-34.0); Mean Corpuscular HGB Conc 33.5 g/dL (31.5-36.5); Mean Corpuscular Volume 88 fL (80-100); Mean Platelet Volume 9.7 fL (9.1-12.4); Platelet Count 334 K/mm3 (150-400); RDW Coefficient Variation 14.6 % (11.7-14.2); RDW Standard Deviation 45.4 fL (35.1-46.3); Red Blood Cell Count 2.71 M/mm3 (3.80-5.20); White Blood Cell Count 13.93 K/mm3 (4.00-11.30)
[2019-02-25 04:45] LABS: Anion Gap 6 mmol/L (6-16); Blood Urea Nitrogen 9 mg/dL (8-24); Bun/Creatinine Ratio 16.3 (12.0-20.0); CO2, Blood 29 mmol/L (21-32); Calcium, Blood 7.7 mg/dL (8.5-10.1); Chloride, Blood 105 mmol/L (98-108); Creatinine, Blood 0.55 mg/dL (0.40-1.00); Glomerular Filtration Rate >60 (60-); Glucose, Blood 91 mg/dL (70-99); Potassium, Blood 3.5 mmol/L (3.5-5.5); Sodium, Blood 140 mmol/L (136-145)
--- NOTE | 2019-02-25 07:11 | NUR ---
SUMMARY PT RESTING QUIETLY THIS AM. VERB ADEQUATE PAIN CONTROL. WOUND VAC ALARMING THIS AM. MAINTAINING SX BUT AIR WHISTLING CAN BE HEARD. CHANGE CANNISTER AND TUBING PLUS REINFORCED DRESSING WITH NO CHANGRE. INTERMITTENTLY ALARMS. AND MUST BE REST. PT UNABLE TO TOLERATE CHANGE OF WOUND VAC DUE TO PAIN. PT HIGHLY TENDER WITH SLIGHT TOUCH TO ABD AROUND OSTOMY APPLIANCE AND WOUND VAC TUBING IN ATTEMPTS TO SCURE POSSIBLE LEAK.DISCUSSED WITH PT AND DAY RN THIS WILL NEED TO BE DEFERRED TO DAY SHIFT PT WILL MOST LILKELY REQUIRE DIFFERENT PAIN MEDS ORDERED TO ALLOW TOLERANCE OF CHANGE. NO C/O NAUSEA TONIGHT.BROWN LIQ PER OSTOMY THIS AM. BARNES WITH 800 ML OUT. PICC LINE DRAWS AND INFUSES WITHOUT DIFF.
--- NOTE | 2019-02-25 19:22 | NUR ---
SUMMARY:PT IS POST OP RESECTION OF SIGMOID. NO ACUTE CHANGE TODAY. VSS, PT A/O. UPON ASSESSMENT THIS MORNING, WOUND VAC FOUND WITH LEAK, UNABLE TO REINFORCE DRESSING. WOUND VAC WAS CHANGED WITH HELP FROM CRITICAL CARE CNSDWAYNE APONTE. OSTOMY APPLIANCE AND GAUZE SURROUNDING OBI DRAIN ALSO REPLACED. PT VERY PAINFUL WITH PROCEDURE, DR. REYES AND DR. SR MADE AWARE, NEW ORDERS FOR DILAUDID. PT REPORTED PAIN WELL MANAGED AFTER DILAUDID GIVEN RATING PAIN 3/10. PT PAINFUL WITH MOVEMENT, TURNED Q2 TODAY. SURGICAL SITE NOW WNL, OSTOMY DRAINING SMALL AMT FORMED BROWN STOOL. TOLERATING SMALL AMT REG DIET, NO NAUSEA. MINIMAL OUT FROM OBI DRAIN. TELE WNL TODAY. PT ENCOURAGED TO USE I.S. AND FLUTTER VALVE. PT VERY KIND AND COMPLIANT. NO SAFETY CONCERNS AT THIS TIME. REPORT GIVEN TO DWAYNE HERNANDEZ.
[2019-02-26 04:30] LABS: BASOPHILS ABSOLUTE AUTO 0.02 K/mm3 (0.00-0.23); BASOPHILS PERCENT AUTO 0 % (0-2); EOSINOPHILS ABSOLUTE AUTO 0.16 K/mm3 (0.00-0.68); EOSINOPHILS PERCENT AUTO 1 % (0-6); Hematocrit 18.4 % (33.0-51.0); Hemoglobin 6.1 g/dL (11.5-16.0); IMMATURE GRAN ABSOLUTE AUTO 0.11 K/mm3 (0.00-0.10); IMMATURE GRAN PERCENT AUTO 1 % (0-1); LYMPHOCYTES ABSOLUTE AUTO 0.81 K/mm3 (0.84-5.20); LYMPHOCYTES PERCENT AUTO 6 % (21-46); MONOCYTES ABSOLUTE AUTO 0.91 K/mm3 (0.16-1.47); MONOCYTES PERCENT AUTO 7 % (4-13); Mean Corpuscular HGB 29.8 pg (26.0-34.0); Mean Corpuscular HGB Conc 33.2 g/dL (31.5-36.5); Mean Corpuscular Volume 90 fL (80-100); Mean Platelet Volume 9.5 fL (9.1-12.4); NEUTROPHILS ABSOLUTE AUTO 11.64 K/mm3 (1.96-9.15); NEUTROPHILS PERCENT AUTO 85 % (41-73); Platelet Count 443 K/mm3 (150-400); RDW Coefficient Variation 14.9 % (11.7-14.2); RDW Standard Deviation 47.5 fL (35.1-46.3); Red Blood Cell Count 2.05 M/mm3 (3.80-5.20); White Blood Cell Count 13.65 K/mm3 (4.00-11.30)
[2019-02-26 04:50] LABS: Alanine Aminotransfer (ALT/SGP 10 U/L (12-78); Albumin, Blood 1.4 g/dL (3.4-5.0); Albumin/Globulin Ratio 0.3 (0.8-1.8); Alk Phos 156 U/L (50-136); Anion Gap 7 mmol/L (6-16); Aspartate Aminotrans (AST/SGOT 24 U/L (12-37); Bilirubin, Total 0.5 mg/dL (0.1-1.0); Blood Urea Nitrogen 8 mg/dL (8-24); CO2, Blood 27 mmol/L (21-32); Calcium, Blood 7.8 mg/dL (8.5-10.1); Chloride, Blood 106 mmol/L (98-108); Globulin, Blood 4.1 g/dL (2.2-4.0); Glomerular Filtration Rate >60 (60-); Glucose, Blood 81 mg/dL (70-99); Magnesium, Blood 2.1 mg/dL (1.6-2.4); Phosphorus, Blood 2.3 mg/dL (2.5-4.9); Potassium, Blood 3.5 mmol/L (3.5-5.5); Sodium, Blood 140 mmol/L (136-145); Total Protein, Blood 5.5 g/dL (6.4-8.2)
--- NOTE | 2019-02-26 05:50 | NUR ---
SHIFT SUMMARY HAS HAD A GOOD NIGHT, SLEPT WELL. POSITION CHANGED SEVERAL TIMES FOR COMFORT. MEDICATED FOR PAIN X2 THIS SHIFT, TOLERATED WELL. MINIMAL OUTPUT TO OBI DRAIN, RECTAL TUBE, AND WOUND VAC. PAIN REMAINS MAINLY IN RECTAL TUBE. DENIES FURTHER NEEDS AT THIS TIME. WILL CONTINUE TO MONITOR AND GIVE HAND OFF TO ONCOMING SHIFT USING SBAR.
--- NOTE | 2019-02-26 06:23 | NUR ---
SPOKE TO DR. EARL RAJPUTING PT'S LOW H&H THIS AM. ORDERES 1 UNIT OF PRBC'S TO BE TRANSFUSED WITH AN H&H TO BE DRAWN 2 HRS POST TRANSFUSION, ORDERS ENTERED. WILL CONTINUE TO MONITOR.
--- NOTE | 2019-02-26 06:40 | NUR ---
T&C DRAWN FROM PICC BY NURSING AND TAKEN TO LAB VIA ORTHOTIC/PROSTHETIC PRACTITIONER
[2019-02-26 15:00] LABS: Hematocrit 28.8 % (33.0-51.0); Hemoglobin 9.8 g/dL (11.5-16.0)
--- NOTE | 2019-02-26 15:52 | NUR ---
Met with patient still having pain but is ok with the control. asked pt if any needs. pt is accepting at this time of care plan. Review with care partner and hospitalist pt statements about hospice and going home. They are also considering home health and continued care. Spent most of todays visit on theraputic time with patient.
--- NOTE | 2019-02-26 17:07 | NUR ---
SHIFT SUMMARY A&OX4, VSS, S/P EXP LAP COLON RESECT W/ COLOSTOMY; OSTOMY BROWN FORMED STOOL; OBI 5 MLS; WOUND VAC ON. BARNES PATENT & DRAINING YELLOW URINE, STAT LOCK ON, OFF FLOOR. 1 UNIT BLOOD INFUSED THIS SHIFT. PT ASSISTS W/REPOSITIONING. TONY REG DIET, DENIES N&V. PAIN MANAGED W/10 MG NORCO Q4H. NS & ABX INFUSING PER EMAR. WCTM & TX PER EMAR UNTIL REPORT GIVEN TO ONCOMING KARL RN.
--- NOTE | 2019-02-26 19:00 | NUR ---
0: WOUND VAC ALARMING, CANNISTER CHANGED, VAC RESUMED; FOAM COMPRESSED AND NO APPARENT LEAKS. PRIMARY RN NOTIFIED
[2019-02-27 04:58] LABS: Hematocrit 28.4 % (33.0-51.0); Hemoglobin 9.5 g/dL (11.5-16.0); Mean Corpuscular HGB 29.9 pg (26.0-34.0); Mean Corpuscular HGB Conc 33.5 g/dL (31.5-36.5); Mean Corpuscular Volume 89 fL (80-100); Mean Platelet Volume 9.3 fL (9.1-12.4); Platelet Count 414 K/mm3 (150-400); RDW Coefficient Variation 14.7 % (11.7-14.2); RDW Standard Deviation 46.7 fL (35.1-46.3); Red Blood Cell Count 3.18 M/mm3 (3.80-5.20); White Blood Cell Count 12.44 K/mm3 (4.00-11.30)
[2019-02-27 05:15] LABS: Anion Gap 5 mmol/L (6-16); Blood Urea Nitrogen 7 mg/dL (8-24); Bun/Creatinine Ratio 13.6 (12.0-20.0); CO2, Blood 29 mmol/L (21-32); Calcium, Blood 7.5 mg/dL (8.5-10.1); Chloride, Blood 106 mmol/L (98-108); Creatinine, Blood 0.52 mg/dL (0.40-1.00); Glomerular Filtration Rate >60 (60-); Glucose, Blood 95 mg/dL (70-99); Potassium, Blood 3.4 mmol/L (3.5-5.5); Sodium, Blood 140 mmol/L (136-145)
--- NOTE | 2019-02-27 06:31 | NUR ---
PATIENT SLEPT WELL. MEDICATED FOR PAIN IN RECTUM T/O NIGHT. SHE HAS BEEN REPOSITIONING HER SELF WITH STANDBY ASSIST AND LITTLE HELP. ABDOMEN IS UNCHANGED FROM ASSESSMENT. OBI HAS NO DRAINAGE. OSTOMY WITH SOFT FORMED STOOL IN BAG. CALL LIGHT IN REACH.
--- NOTE | 2019-02-27 09:18 | NUR ---
FROM SURGICAL ROOM 210 TO SDS VS DONE SAT AT 87% PLACED ON 2 LITERS 02. ADMISSION TO UNIT STARTED
--- NOTE | 2019-02-27 10:38 | NUR ---
PT BACK FROM PROCEDURE TO HAVE WOUND VAC REMOVED. PT AWAKENS EASILY BUT IS DROWSY. VSS. REPOSITIONED OFF OF RECTUM FOR COMFORT. BULKY GAUZE DRESSINGS TO ABD ARE CDI. OSTOMY APPLIANCE CHANGED DURING PROCEDURE. PT DOES HAVE VISITORS AT BEDSIDE. CALL LIGHT WITHIN REACH.
--- NOTE | 2019-02-27 11:37 | NUR ---
02/27/19 1137 Nirav Beatty 3-LEAD EKG REVIEWED WITH PHYSICIAN PRIOR TO START OF PROCEDURE.Patient to ENDO 1History, Chart, Medications and Allergies reviewed before start of procedure.MONITOR INTACT WITH CONTINUOUS PULSE OXIMETRY AND INTERMITTENT BP.O2 VIA N/C INTACT THROUGHOUT SEDATION/PROCEDURE. MODERATE SEDATION WITH FENT AND VERSED PER DR VERA.
--- NOTE | 2019-02-27 16:27 | NUR ---
SHIFT SUMMARY PT CONTINUES TO REPORT SEVERE PAIN TO RECTUM WITH MOVEMENT OR WHEN PRESSURE IS APPLIED. NEW ORDER FOR FENTANYL PATCH INITIATED TODAY AND CONT TO MEDICATE WITH ORAL NORCO AROUND THE CLOCK WITH IV DILAUDED TO BE USED FOR BREAKTHROUGH PAIN ONLY. WOUND VAC WAS DC'D TODAY AND NOW THERE IS A WET TO DRY DRESSING IN PLACE THAT NEEDS TO BE CHANGED DAILY PER DR. VERA. OSTOMY PRODUCING GAS AND LIQ BROWN STOOL. OBI DRAIN TO RLQ WITH SMALL MILKY DRAINAGE. REPOSITIONING PT PRN AND UPON REQUEST PT CAN TOLERATE IT. IVF INFUSING PER ORDERS. FAMILY AT BEDSIDE FOR SUPPORT. PT USES CALL LIGHT APPROPRIATELY.
--- NOTE | 2019-02-27 18:25 | NUR ---
Pal Spiritual Care routine note: Tere was tired but talkative this afternoon. Her SO, Mauricio, was present at bedside. Both appear to be coming to terms with Tere's dire prognosis. They appear hesitant to make a long-standing, final decision regarding POC. I suspect they are enjoying this "limbo" period for as long as possible. They both knew Tere had cancer, and chose not to fight against it. Howver, now the dx is front and center and the reality of Tere's limited time appears to be overwhelming. I reccomend staff refrain from "decision" conversation for the time being. Both Tere and Mauricio are deeply appreciative of prayer and spiritual support. Both became tearful during prayer. I will continue to follow Tere throughout hospitalization as case-load permits.
--- NOTE | 2019-02-28 05:56 | NUR ---
SHIFT SUMMARY: NO ACUTE CHANGES OVERNIGHT. PT POD #12 FOR RESECTION. ACTIVE BT X4. TONY REG DIET. DENIES N/V. ABD AND RECTUM VERY TENDER. PAIN MANAGED WITH NORCO Q4. TAKING NORCO CRUSHED IN APPLESAUCE. GIVEN 1MG DILAUDID ONCE. 2 ASSIST FOR REPOSITIONING. MEPILEX PLACED TO COCCYX PREVENTATIVE. OSTOMY TO LLQ PRODUCING GAS AND LIQ BROWN STOOL. OBI TO RLQ DRAINING SMALL AMOUNT. MIDLINE DRESSING CHANGED WITH WET TO DRY 4X4 GAUZE PER ORDERS. PICTURES OF WOUND TAKEN AND PLACED IN CHART. BARNES PATENT AND DRAINING YELLOW URINE. LABIA REMAINS SWOLLEN AND TENDER TO THE TOUCH. PT HAS BEEN NPO SINCE MIDNIGHT FOR POSSIBLE REVISION OF STOMA TODAY.
[2019-02-28 07:10] LABS: BASOPHILS ABSOLUTE AUTO 0.05 K/mm3 (0.00-0.23); BASOPHILS PERCENT AUTO 1 % (0-2); EOSINOPHILS ABSOLUTE AUTO 0.25 K/mm3 (0.00-0.68); EOSINOPHILS PERCENT AUTO 3 % (0-6); Hematocrit 28.7 % (33.0-51.0); Hemoglobin 9.5 g/dL (11.5-16.0); IMMATURE GRAN ABSOLUTE AUTO 0.06 K/mm3 (0.00-0.10); IMMATURE GRAN PERCENT AUTO 1 % (0-1); LYMPHOCYTES ABSOLUTE AUTO 0.76 K/mm3 (0.84-5.20); LYMPHOCYTES PERCENT AUTO 8 % (21-46); MONOCYTES ABSOLUTE AUTO 0.91 K/mm3 (0.16-1.47); MONOCYTES PERCENT AUTO 9 % (4-13); Mean Corpuscular HGB 29.5 pg (26.0-34.0); Mean Corpuscular HGB Conc 33.1 g/dL (31.5-36.5); Mean Corpuscular Volume 89 fL (80-100); Mean Platelet Volume 9.2 fL (9.1-12.4); NEUTROPHILS ABSOLUTE AUTO 7.76 K/mm3 (1.96-9.15); NEUTROPHILS PERCENT AUTO 79 % (41-73); Platelet Count 489 K/mm3 (150-400); RDW Coefficient Variation 15.1 % (11.7-14.2); RDW Standard Deviation 47.2 fL (35.1-46.3); Red Blood Cell Count 3.22 M/mm3 (3.80-5.20); White Blood Cell Count 9.79 K/mm3 (4.00-11.30)
[2019-02-28 07:14] LABS: Alanine Aminotransfer (ALT/SGP 10 U/L (12-78); Albumin, Blood 1.5 g/dL (3.4-5.0); Albumin/Globulin Ratio 0.4 (0.8-1.8); Alk Phos 124 U/L (50-136); Anion Gap 5 mmol/L (6-16); Aspartate Aminotrans (AST/SGOT 21 U/L (12-37); Bilirubin, Total 0.4 mg/dL (0.1-1.0); Blood Urea Nitrogen 7 mg/dL (8-24); Bun/Creatinine Ratio 12.8 (12.0-20.0); CO2, Blood 30 mmol/L (21-32); Calcium, Blood 7.7 mg/dL (8.5-10.1); Chloride, Blood 105 mmol/L (98-108); Creatinine, Blood 0.55 mg/dL (0.40-1.00); Globulin, Blood 4.1 g/dL (2.2-4.0); Glomerular Filtration Rate >60 (60-); Glucose, Blood 94 mg/dL (70-99); Magnesium, Blood 2.2 mg/dL (1.6-2.4); Potassium, Blood 3.6 mmol/L (3.5-5.5); Sodium, Blood 140 mmol/L (136-145); Total Protein, Blood 5.6 g/dL (6.4-8.2)
[2019-02-28 07:30] LABS: Percent Saturation 11.8 % (15.0-50.0)
--- NOTE | 2019-02-28 11:02 | NUR ---
SPIRITUAL CARE IN WITH PT.
--- NOTE | 2019-02-28 17:35 | NUR ---
Pal Spiritual Care routine visit: Met with Tere and her spouse, Mauricio, at bedside. They tell me they are awaiting physician direction. Tere again stated that she would rather be home and does not want aggressive medical treatment. "If I need another surgery and it would provide better pain control, then I will agree to it." Both Tere and Mauricio are impressed by compasion of [facility] chief of staff. They feel well cared-for. This is a corbin couple. Mauricio and Tere respond well to theraputic listening, emotional affirmation and prayer. I will continue to emotionally/spiritualy support them as schedule permits.
--- NOTE | 2019-02-28 18:20 | NUR ---
SUMMARY NO ACUTE CHANGES THIS SHIFT. DR VERA DISCUSSED W/PT HOLDING OFF ON REVISION OF STOMA AT THIS TIME. STOMA PRODUCING LIQUID BROWN STOOL. DR VERA CHANGED OSTOMY APPLIANCE AND DRESSING TO ABD. MEDICATED PER ORDERS T/O SHIFT FOR PAIN. DRESSING AND OSTOMY CHANGE VERY PAINFUL FOR PT. PT PT WORKED W/THERAPY THIS SHIFT. USES CALL LIGHT APPROPRIATELY.
--- NOTE | 2019-03-01 08:02 | NUR ---
SHIFT SUMMARY LYING IN LOW FOWLERS FOR COMFORT. ABLE TO TURN SELF IN THE BED. 150ML LOOSE BROWN STOOL EMPTIED FROM OSTOMY BAG. PAIN MEDS ADMINISTERED PER EMAR. DENIES FURTHER NEEDS AT THIS TIME. SAFETY MEASURES IN PLACE. HAND OFF GIVEN TO DWAYNE ARCEO USING SBAR.
--- NOTE | 2019-03-01 10:19 | NUR ---
PATIENT UP TO SIT TO SIDE OF BED WITH PT. MOVES SLOW, BUT TOLERATED WELL.
--- NOTE | 2019-03-01 16:08 | NUR ---
ABD DRESSING CHANGED AFTER FENTANYL 25 MCG ADMIN. TOLERATED WELL.
--- NOTE | 2019-03-01 16:54 | NUR ---
OBI DRAIN OUTPUT: 15 ML PURULANT MERCHANT DRAINAGE THIS SHIFT.
--- NOTE | 2019-03-01 16:59 | NUR ---
Pal Spiritual Care routine visit: Provided prayer and emotional support to Tere and her SO, Les. Both in good spirits, saying the physician told them no further surgery needed. Interestingly, Tere spoke about getting stronger and being able to "go out to dinner and visit friends." "I can feel myself getting better." [employer] services will remain available.
--- NOTE | 2019-03-01 18:01 | NUR ---
SHIFT SUMMARY PATIENT ABLE TO SIT TO SIDE OF BED WITH PT TODAY; TOLERATED WELL. PATIENT STATES PAIN TOLERABLE LEVEL WITH PO AND IV PAIN MEDS. TOLERATING PO. OSTOMY WITH SOFT BROWN STOOL AND FLATUS. DRESSING CHANGED PER DR VERA'S INSTRUCTIONS TODAY. FC PATENT AND DRAINING; STAT LOCK IN PLACE. NO ACUTE CHANGES THIS SHIFT. SPOUSE AND OTHERS IN TO VISIT T/O SHIFT.
--- NOTE | 2019-03-01 19:18 | NUR ---
review of pain strategies with shift boss nurse.
--- NOTE | 2019-03-02 06:42 | NUR ---
SHIFT SUMMARY LYING IN LOW FOWLERS WITH EYES CLOSED. HAS BEEN TURNING IN BED WITH MINIMAL ASSIST. WAS ABLE TO BOOST HERSELF IN BED WITH MODERATE ASSIST. MEDICATED FOR PAIN X3 THIS SHIFT. DENIES FURTHER NEEDS AT THIS TIME. SAFETY MEASURES IN PLACE. WILL GIVE HAND OFF TO CONCOMING SHIFT USING SBAR.
--- NOTE | 2019-03-02 12:25 | NUR ---
PATIENT PREMEDICATED PER DR VERA FOR INSPECTION OF STOMA. OBI DRAIN REMOVED. WOUND DRESSING CHANGED BY THIS RN. FC D/C'D PER V.O. PATIENT TOLERATED ABOVE WELL.
--- NOTE | 2019-03-02 16:17 | NUR ---
met with nursing staff to review patient needs. suggest increasing fentanyl patch. pt needs prognosis from physician and plan of oncology care versus hospice. interaction have been supportive and pt and family have been discussing care.
--- NOTE | 2019-03-02 18:02 | NUR ---
PT HAS BEEN STABLE SINCE THIS RN ASSUMED CARE. PT MOVING IN BED BUT NOT TOLERATING SITTING UP. STOOD WITH THERAPY X1 THIS SHIFT. OSTOMY WITH SOFT BROPWN STOOL. MIDLINE DRESSING IN PLACE. BARNES DC'D THIS AFTERNOON, PT HAS NOT VOIDED YET, WILL BLADDER SCAN NEEDED. PAIN CONTROLLED WITH IV/PO PRN MEDS AND SCHEDULED FENTANYL PATCH WHICH WAS PLACED TO LEFT ARM THIS AFTERNOON. PICC DRESSING CHANGED BY THIS RN. CURRENTLY INFUSING TKO. PT HAS POOR APPETITE. PALLIATIVE CARE IN TO SEE PT THIS AFTERNOON. CONT DISCHARGE PLANNING. PT USES CALL LIGHT APPROPRIATELY NEEDED.
--- NOTE | 2019-03-03 05:45 | NUR ---
SHIFT SUMMARY PT POD#15 SIGMOID RESECTION WITH END COLOSTOMY; BROWN STOOL OUT FROM STOMA. RECTAL AND ABD PAIN MANAGED PER EMAR. DRESSINGS CDI. ABD SOFT; DENIES NAUSEA. VSS; 2L O2 VIA NC. MAKES SMALL ADJUSTMENTS TO POSITION INDEPENDENTLY. PT VOIDING WELL. SCD'S TO BLE'S. CALL LIGHT IN REACH; PT DEMONSTRATES USE. WCTM UNTIL REPORT TO DAY SHIFT RN.
--- NOTE | 2019-03-03 13:02 | NUR ---
Clinical Visit: Pt is alert, oriented. She is laying in bed. is at bedside and they are ready to talk about "what is next." and pt expressing concerns over end of life decisions. They have talked about end of life care in the past. Pt's lost his first to cancer in a particularly painful way. They do not want this to happen with Tere. They are valuing the good days, trying to "get through the bad ones." Tere reports that she values quality of life rather than prolonging life at all costs. Reviewed hospice care, home health, and comfort care. They feel ready to make the decision to move to hospice following discharge. Wound care discussed, symptom managment discussed. Reviewed strategies to improve life with symptom managment and medications. No other concerns at this time. They are confident with the decision. They would like PT/OT to continue during the hospital stay, as Tere would like to feel as good as she can with the time left to her. Instructed that pt could go on comfort care at anytime during her hospitalization, but can be discharged to hospice as soon as can be arranged. Care managers not here on weekends and arrangements cannot be done at this time. Tere feels comfortable letting the nurse know if she would like to change her care plan to comfort only. Will remain available.
--- NOTE | 2019-03-03 16:12 | NUR ---
SHIFT SUMMARY POD15 SIGMOID COL RESECTION W/ OSTOMY, ABD MIDLINE DRESSING CHANGED TODAY. CURRENTLY ON RA @ 95%, TCDB EDU & ENC. RESP THERAPY PRN. PAIN MANAGED WITH 10 MG NORCO GIVEN 2X, 1MG DILAUDID GIVEN 2X, FENTANYL PATCH L SHOULDER. PT REPOSITIONS SELF WELL. VOIDING/INCONTINENT/ATTENDS. STOMA - BROWN STOOL. WORKED WITH PT, STOOD/PIVOT TO AND BACK TO BED. TONY PO, DENIES N&V. WCTM & TX PER EMAR UNTIL REPORT GIVEN TO ONCOMING NOC RN.
--- NOTE | 2019-03-04 04:37 | NUR ---
SHIFT SUMMARY PT A&O X4 T/O SHIFT. COLON RESECTION AND OSTOMY PLACEMENT ON 02/16/19; DRESSING TO ABD CDI. BTX4; TOLERATING DIET. PT DEMONSTRATING INCREASED BED MOBILITY AND DECREASED GAURDING THIS SHIFT. PAIN MANGED PER EMAR. 1L O2 VIA NC TO KEEP O2 SATS OVER 90%. SCD'S TO BLE'S. CALL LIGHT IN REACH; PT DEMONSTRATES USE. WCTM UNTIL REPORT TO DAY SHIFT RN.
--- NOTE | 2019-03-04 11:00 | NUR ---
IN TO CHANGE ABDOMINAL DRESSING.
--- NOTE | 2019-03-04 16:06 | NUR ---
Clinical Visit: Pt is alert, oriented. She reports 6/10 pain. 2-3 level is comfortable, 4/10 is "pushing it." She states she experiences increased pain if she moves around a lot. She has had many visitors today, and now she feels exhausted. Reviewed medications and trying to move her to oral meds instead of IV medications. She understands the reasons for this and agrees. Discussed basic level of pain management and reviewed breakthrough medications. She has norco and roxanol for breakthrough, with the fentanyl patch and oxycontin as the maintenence pain managment. She states that she has a history of becoming nauseated with codeine. Recommend small starter dose of morphine to see if this is tolerated before giving larger doses. She is worried about getting addicted to the medications and being put in retirement for it. Relieved fears, reviewed addictive behaviors vs tolerations to medication. She and voice understanding of new pain management plan. Questions answered regarding hospice. They are not being moved to comfort care: Pt wants to continue physical therapy because she feels that her will be better if she stays somewhat stronger. No other concerns at this time. Will remain available.
--- NOTE | 2019-03-04 19:26 | NUR ---
SUMMARY NO ACUTE CHANGES THROUGH THE DAY. PT REMAINS STABLE. PAIN MEDS ADJUSTED BY PALLIATIVE CARE. PT RECIEVED A BED BATH TODAY, HER WAS IN TO VISIT. PT WAS UNABLE TO GET INTO A W/C AND GO OUTSIDE DUE TO RECTAL PAIN. LIDOCAINE OINTMENT WAS ORDERED. PT STATES IT DOES HELP AND SHE WILL ATTENPT THE W/C AGAIN TOMORROW. REPORT CHRIS TO KARL RICE. CALL LIGHT IN REACH.
[2019-03-05 06:55] LABS: BASOPHILS ABSOLUTE AUTO 0.05 K/mm3 (0.00-0.23); BASOPHILS PERCENT AUTO 1 % (0-2); EOSINOPHILS ABSOLUTE AUTO 0.26 K/mm3 (0.00-0.68); EOSINOPHILS PERCENT AUTO 3 % (0-6); Hematocrit 28.8 % (33.0-51.0); Hemoglobin 9.2 g/dL (11.5-16.0); IMMATURE GRAN ABSOLUTE AUTO 0.02 K/mm3 (0.00-0.10); IMMATURE GRAN PERCENT AUTO 0 % (0-1); LYMPHOCYTES ABSOLUTE AUTO 1.02 K/mm3 (0.84-5.20); LYMPHOCYTES PERCENT AUTO 12 % (21-46); MONOCYTES ABSOLUTE AUTO 0.95 K/mm3 (0.16-1.47); MONOCYTES PERCENT AUTO 11 % (4-13); Mean Corpuscular HGB Conc 31.9 g/dL (31.5-36.5); Mean Corpuscular Volume 91 fL (80-100); Mean Platelet Volume 8.5 fL (9.1-12.4); NEUTROPHILS ABSOLUTE AUTO 6.03 K/mm3 (1.96-9.15); NEUTROPHILS PERCENT AUTO 73 % (41-73); Platelet Count 478 K/mm3 (150-400); RDW Coefficient Variation 15.9 % (11.7-14.2); RDW Standard Deviation 52.7 fL (35.1-46.3); Red Blood Cell Count 3.17 M/mm3 (3.80-5.20); White Blood Cell Count 8.33 K/mm3 (4.00-11.30)
[2019-03-05 07:14] LABS: Anion Gap 6 mmol/L (6-16); Blood Urea Nitrogen 6 mg/dL (8-24); Bun/Creatinine Ratio 12.2 (12.0-20.0); CO2, Blood 29 mmol/L (21-32); Calcium, Blood 8.3 mg/dL (8.5-10.1); Chloride, Blood 102 mmol/L (98-108); Creatinine, Blood 0.49 mg/dL (0.40-1.00); Glomerular Filtration Rate >60 (60-); Glucose, Blood 91 mg/dL (70-99); Potassium, Blood 3.7 mmol/L (3.5-5.5); Sodium, Blood 137 mmol/L (136-145)
--- NOTE | 2019-03-05 07:43 | NUR ---
SHIFT SUMMARY PT RESTED WELL T/O NIGHT. AAOX4/ANXIOUS WITH CARE. MIDLINE ABD INCISION WITH BULKY GAUZE DRESSING C/D/I. DRESSING TO PREVIOUS DRAIN SITE WITH LARGE AMOUNTS OF YELLOW PURULENT DRAINAGE, CHANGED X2 THIS SHIFT. OSTOMY WITH LARGE AMOUNTS SOFT BROWN OUTPUT, STOMA DUSKY. CONTINUE TO ENCOURAGE PT TO REPOSITION FREQUENTLY. PT INCONTINENT OF URINE, ATTENDS IN PLACE. PT RESTING AT THIS TIME, NADN, CALL LIGHT IN REACH. REPORT TO DAY SHIFT RN.
--- NOTE | 2019-03-05 14:41 | NUR ---
Pal Spiritual Care routine note: Met with Mauricio Carranza and family friend at bedside. Flash expressed dissapointment with need for another surgery. She again stated how much she is fearful of pain. She really wants to be home in her familiar environment. I provided spiritual direction and prayer with good effect. I will continue to see Tere as case-load permits.
--- NOTE | 2019-03-05 17:03 | NUR ---
SUMMARY NO ACUTE CHANGES NOTED THROUGH THE DAY. PAIN MANAGED PRN PER EMAR. ABD DRSG'S WERE CHANGED BY . RLQ OBI SITE CONTINUES TO HAVE PURULENT DRAINAGE, DRSG HAS BEEN CHANGED TWICE. MINIMAL ACTIVITY REQUESTED BY TODAY, PHYSICAL THERAPY WAS SKIPPED. ATTENDS CHANGED PRN. PT IS TOLERATING PO INTAKE. CALL LIGHT IN REACH. WC
--- NOTE | 2019-03-06 08:00 | NUR ---
SUMMARY PT NPO PENDING OR TODAY FOR ABD WOUND REPAIR. PT AND FIANCE ANXIOUS.ENC AND SUPPORT GIVEN.PT TAKING LIQUID ROXINOL THIS AM FOR PAIN WHILE NPO.
--- NOTE | 2019-03-06 10:58 | NUR ---
pt to surgery
--- NOTE | 2019-03-06 11:04 | NUR ---
PT TO OR PT TRANSFERRED TO OR VIA HOSPITAL BED AT 1055 WITH DWAYNE BARKLEY.
--- NOTE | 2019-03-06 11:19 | NUR ---
History, Chart, Medications and Allergies reviewed before start of procedure. Lungs clear T/O to Auscultation. Patient confirms NPO status and agrees with scheduled surgery. Pre-Op teaching done. Pt verbalizes understanding.
--- NOTE | 2019-03-06 12:32 | NUR ---
2MG VERSED GIVEN PRIOR TO IV START. PT TOLERATED THIS ATTEMPT BETTER THAN PREVIOUS ATTEMPTS, ALTHOUGH REMAINS VERY PAINFUL AND ANXIOUS WITH ANY STIMULATION.
--- NOTE | 2019-03-06 17:06 | NUR ---
Spiritual Care routine note: Tere expressed anxiety about upcoming proceedure. She and her spouse are deeply sikh and appreciaitve of prayer. Provided prayer before sugery and then spent great deal of time counseling spouse, Les. He became very tearful and expressed tremendous fear/sadness. Spiritual counel was well recieved. I will remain available.
--- NOTE | 2019-03-06 17:29 | NUR ---
SUMMARY S/P REPAIR FASCIAL DEHISCENCE THIS SHIFT. VSS. PT SLEEPING T/O AFTERNOON. PREVENA WOUND VAC TO MIDLINE ABD INCISION DRAINING SS FLUID. CALL LIGHT IN REACH.
--- NOTE | 2019-03-06 18:55 | NUR ---
recvd report from previous shift RN Sofy, pt sitting in bed, a/o x 4, pleasant/cooperative, call light within reach, bed in lowest position, bed rails up x 2
--- NOTE | 2019-03-07 04:09 | NUR ---
shift summary: vss, no acute changes, pt remained a/0 x 4, pleasant/cooperative. pt appears pale per her baseline, weakened from inactivity and prolonged hospital stay. pt able to assist with linen change following incontinent void, rolls herself slowly during attends changes. pt tolerated PO intake, minimally, stating she is not very hungry, no n/v. ostomy with scant soft brown stool. pt with incontinent voids x 2. prevenea wound vac with sanguinous discharge, cannister changed approx 0350. pt states her throat feels sore, cepachol provided per sep. pt reports no pain in operative surgical site, pain at 8/10 in rectum. pt's legs appear to tremble. when questioned, pt replies they tremble due to her anxiety surrounding being touched as she says she is sensitive and painful when touched. nursing staff warns pt when touching.
[2019-03-07 05:07] LABS: BASOPHILS PERCENT AUTO 0 % (0-2); EOSINOPHILS PERCENT AUTO 0 % (0-6); Hematocrit 27.7 % (33.0-51.0); Hemoglobin 8.9 g/dL (11.5-16.0); IMMATURE GRAN ABSOLUTE AUTO 0.02 K/mm3 (0.00-0.10); IMMATURE GRAN PERCENT AUTO 0 % (0-1); LYMPHOCYTES ABSOLUTE AUTO 0.53 K/mm3 (0.84-5.20); LYMPHOCYTES PERCENT AUTO 8 % (21-46); MONOCYTES PERCENT AUTO 3 % (4-13); Mean Corpuscular HGB Conc 32.1 g/dL (31.5-36.5); Mean Corpuscular Volume 93 fL (80-100); Mean Platelet Volume 8.8 fL (9.1-12.4); NEUTROPHILS ABSOLUTE AUTO 6.32 K/mm3 (1.96-9.15); NEUTROPHILS PERCENT AUTO 89 % (41-73); Platelet Count 413 K/mm3 (150-400); RDW Coefficient Variation 15.9 % (11.7-14.2); RDW Standard Deviation 54.2 fL (35.1-46.3); Red Blood Cell Count 2.97 M/mm3 (3.80-5.20); White Blood Cell Count 7.07 K/mm3 (4.00-11.30)
--- NOTE | 2019-03-07 06:27 | NUR ---
PT HAD NO ACUTE CHAGES SINCE ASSUMING CARE, VSS. DRESSING CDI. PT REP PAIN TONY, DENIED N/V. NO OUTPUT FROM OSTOMY. PT SHIFTING SELF IN BED, IS USING CALL LIGHT FOR ASSISTANCE, WILL CONT TO MONITOR UNTIL REP GIVEN TO DAY RN.
--- NOTE | 2019-03-07 10:11 | NUR ---
Clinical Visit: Pt alert, oriented but forgetful. She did not remember Dr. Mishra's rounding until prompted and reminded. She doesn't completely remember the discussion regarding comfort care and would prefer if her was here before making changes to her care plan. She reports the roxanol tastes terrible, but it is effective for breakthrough pain. She reports better pain control at this time. She is working with OT. Reports increased pain with movement, but she states she feels better after working with therapies. Discussed with nurse Sophie and nurse Michaela. Will follow up visit when comes in - RN to notify palliative care when he arrives to room. Pt having extreme anxiety. Nursing requests ativan order. Pt has had no difficulty with sedation due to medications. Called and spoke to Dr. Mishra. New orders placed for PO Ativan and increased dose of Oxycontin to BID instead of daily. Will remain available and follow up with pt and family later today.
--- NOTE | 2019-03-07 16:46 | NUR ---
SHIFT SUMMARY PT A&OX4, VSS. POD1 EXP LAP MESH REPAIR FASCIAL DEHISC W/PREVENA PLACED (POD19 COLECTOMY). PAIN MANAGED PER EMAR. TONY PO REG DIET; DENIES N&V. WORKED WITH PHYSICAL THERAPY AND OCCUPATIONAL THERAPY TODAY; UP TO CHAIR FOR APPROX 5 HOURS THIS SHIFT; STAND/PIVOT W/1 MOD ASSIST BACK TO BED. REPOSITIONS SELF IN BED. INCONTINENT; ATTENDS ON. SIGNIFICANT OTHER AT BEDSIDE. WCTM & TX PER EMAR UNTIL REPORT GIVEN TO ONCOMING NOC RN.
--- NOTE | 2019-03-07 16:58 | NUR ---
SHIFT SUMMARY PT A&OX4, VSS, RUE FX IN BRACE & SLING, ELEVATED ON PILLOW, DENIES N&T, WIGGLES FINGERS, CAP REFILL WNL. PAIN MANAGED WITH 10 MG PERC X2 AND 0.5 DIL X2. TONY PO, DENIES N&V, NEEDS MEAL ASSISTANCE. VOIDING IN BEDPAN/INCONTINENT IN ATTENDS. BEDREST. WORKED WITH OT, WORKED WITH PT WITH SON BEDSIDE. WCTM & TX PER EMAR UNTIL REPORT GIVEN TO ONCOMING KARL RN.
--- NOTE | 2019-03-07 18:05 | NUR ---
Clinical Visit: Pt alert and oriented. She states that she was up in a chair today for a long time - something she has not been able to do during her hospital stay. She is hoping to get in a wheelchair and get outside for some fresh air. Reviewed with her plan for hospice. Michaela, nurse, is bedside also. Pt reports to her after Michaela's questioning that she does desire comfort care. Pt would like to keep PT/OT. She expresses that she would like to be as fit as she can until she is unable to do so because of her advanced disease. Modified comfort care: keep IV antibiotics and PT/OT until hospice can be arranged and discharge completed with all things in place. She does request some PT to be done at home through hospice, if possible. No other concerns at this time. She does repeat again that she would like to be discharged with hospice.
--- NOTE | 2019-03-07 18:21 | NUR ---
Spiritual Care routine visit: Tere is pleased today b/c she "is getting better." She feels stronger and tells me she is determined to work with PT/OT to regain her stamina. She is looking forward to returning home soon. She has not spoken about her cancer dx or its progression since she was first admitted. Perhaps she and Les are happily in denial. I provided prayer at bedside. Tere is grateful for spiritual care and attention. I will continue to follow.
--- NOTE | 2019-03-07 23:36 | NUR ---
PICC DRESSING CHANGED NO ACUTE CHANGES NOTED. PT ASSISTED WITH REPOSITIONING POST DRESSING CHANGE. CALL LIGHT IN REACH, BED IN LOW POSITION.
[2019-03-08 06:54] LABS: BASOPHILS ABSOLUTE AUTO 0.01 K/mm3 (0.00-0.23); BASOPHILS PERCENT AUTO 0 % (0-2); EOSINOPHILS ABSOLUTE AUTO 0.02 K/mm3 (0.00-0.68); EOSINOPHILS PERCENT AUTO 0 % (0-6); Hematocrit 28.1 % (33.0-51.0); IMMATURE GRAN ABSOLUTE AUTO 0.03 K/mm3 (0.00-0.10); IMMATURE GRAN PERCENT AUTO 0 % (0-1); LYMPHOCYTES ABSOLUTE AUTO 1.17 K/mm3 (0.84-5.20); LYMPHOCYTES PERCENT AUTO 12 % (21-46); MONOCYTES ABSOLUTE AUTO 1.03 K/mm3 (0.16-1.47); MONOCYTES PERCENT AUTO 11 % (4-13); Mean Corpuscular HGB 29.3 pg (26.0-34.0); Mean Corpuscular Volume 92 fL (80-100); Mean Platelet Volume 8.9 fL (9.1-12.4); NEUTROPHILS ABSOLUTE AUTO 7.38 K/mm3 (1.96-9.15); NEUTROPHILS PERCENT AUTO 77 % (41-73); Platelet Count 419 K/mm3 (150-400); RDW Coefficient Variation 15.9 % (11.7-14.2); RDW Standard Deviation 52.8 fL (35.1-46.3); Red Blood Cell Count 3.07 M/mm3 (3.80-5.20); White Blood Cell Count 9.64 K/mm3 (4.00-11.30)
[2019-03-08 07:04] LABS: Anion Gap 4 mmol/L (6-16); Blood Urea Nitrogen 16 mg/dL (8-24); Bun/Creatinine Ratio 26.8 (12.0-20.0); CO2, Blood 33 mmol/L (21-32); Calcium, Blood 8.5 mg/dL (8.5-10.1); Chloride, Blood 101 mmol/L (98-108); Glomerular Filtration Rate >60 (60-); Glucose, Blood 92 mg/dL (70-99); Potassium, Blood 4.3 mmol/L (3.5-5.5); Sodium, Blood 138 mmol/L (136-145)
--- NOTE | 2019-03-08 15:47 | NUR ---
SHIFT SUMMARY PT A&OX4, VSS, POD2 EXP LAP MESH REPAIR, PREVENA - CHANGED CARTRIDGE TODAY; POD20 COLECTOMY. OSTOMY PRODUCING FLATUS AND SMALL AMT OF BOWEL. PAIN MANAGED PER EMAR. TONY REG DIET, DENIES N&V. WORKED WITH PT & OT TODAY: STAND PIVOT TO WC AND TRIP OUTSIDE WITH SIGNIFICANT OTHER LES. REPOSITIONS SELF IN BED; ROLLS FOR BED CHANGES. INCONTINENT; WEARS ATTENDS. WILL GIVE REPORT TO NEXT RN.
--- NOTE | 2019-03-08 16:54 | NUR ---
Spiritual Care routine note: Tere and her spouse, Mauricio, told me about their decision towards comfort-care/hospice. Their beleif in an afterlife and being rewarded for a life well-lived removes any fear. They tell me the physical separation is the only part of this that is painful. Both became tearful during prayer. Provided gentle chief counsel and facilitated good conversation exploring their understanding of "Heaven." These interventions appeared to help. This is a corbin couple. Tere expects to be hospitalized until next week. Palliative Care team has done an excellent job in improving Tere's pain management. She appears rested and bright. No complaints or concerns presented. Medical Management Specialist services will remain available.
--- NOTE | 2019-03-08 18:12 | NUR ---
SINCE ASSUMING CARE, PT HAS RESTED IN BED. DECLINED NEEDS. REPOSITIONED FOR COMFORT. TOLERATING DINNER.
[2019-03-09 07:05] LABS: BASOPHILS ABSOLUTE AUTO 0.03 K/mm3 (0.00-0.23); BASOPHILS PERCENT AUTO 0 % (0-2); EOSINOPHILS ABSOLUTE AUTO 0.22 K/mm3 (0.00-0.68); EOSINOPHILS PERCENT AUTO 3 % (0-6); Hematocrit 29.7 % (33.0-51.0); Hemoglobin 9.3 g/dL (11.5-16.0); IMMATURE GRAN ABSOLUTE AUTO 0.04 K/mm3 (0.00-0.10); IMMATURE GRAN PERCENT AUTO 1 % (0-1); LYMPHOCYTES ABSOLUTE AUTO 1.22 K/mm3 (0.84-5.20); LYMPHOCYTES PERCENT AUTO 14 % (21-46); MONOCYTES ABSOLUTE AUTO 1.12 K/mm3 (0.16-1.47); MONOCYTES PERCENT AUTO 13 % (4-13); Mean Corpuscular HGB 28.7 pg (26.0-34.0); Mean Corpuscular HGB Conc 31.3 g/dL (31.5-36.5); Mean Corpuscular Volume 92 fL (80-100); Mean Platelet Volume 8.6 fL (9.1-12.4); NEUTROPHILS ABSOLUTE AUTO 6.23 K/mm3 (1.96-9.15); NEUTROPHILS PERCENT AUTO 70 % (41-73); Platelet Count 366 K/mm3 (150-400); RDW Coefficient Variation 15.9 % (11.7-14.2); RDW Standard Deviation 52.4 fL (35.1-46.3); Red Blood Cell Count 3.24 M/mm3 (3.80-5.20); White Blood Cell Count 8.86 K/mm3 (4.00-11.30)
--- NOTE | 2019-03-09 07:25 | NUR ---
SHIFT SUMMARY PT RESTED WELL T/O NIGHT. AAOX4/ANXIOUS AT NIGHT. PAIN CONTROLLED WITH 2 NORCO Q4P. NO NAUSEA/EMESIS. ABD INCISION WITH PREVENA, CANISTER CHANGED THIS SHIFT. OSTOMY DEVICE SECURED WITH LARGE FORMED BM THIS SHIFT + FLATUS. PT REPOSITIONS SELF WELL IN BED, CONTINUE TO ENCOURAGE. INCONTINENT OF URINE IN ATTENDS. SCDs IN PLACE ON BLE. NO ACUTE CHANGES OVER NIGHT. PT UP WATCHING TV AT THIS TIME, BRIANN, CALL LIGHT IN REACH + REPORT TO DAY SHIFT RN.
--- NOTE | 2019-03-09 08:50 | NUR ---
ISTRATE BEEN HERE TO SEE PT RECENTLY.
--- NOTE | 2019-03-09 17:49 | NUR ---
Clinical Visit: Pt alert, oriented. She is sitting up in bed, enjoying her dinner. Gentle conversation. She feels very good to go home in the morning. She is ready to be home. Pt reports that she is still worried that she will become addicted to pain medication. Reviewed this for her. Instructed that she is going home to be comfortable. Many times pts can be irritable or grumpy when in pain. It is best to control her pain so that she can enjoy her family as best she can. She is asking if hospice will increase her pain meds if she needs it and advised that they will. Reviewed nurse visits and access to RN through call schedule if she is having difficulty. This seems to ease her worry. She has no other questions or concerns at this time. She begins to cry slightly when she is talking about her . She reports that she isn't afraid to , but she doesn't want to leave him alone in this world without her. She shares about their very special relationship and how he has treated her with respect and care. Therapeutic listening. She is ready to go home. Palliative care will remain available.
--- NOTE | 2019-03-09 17:53 | NUR ---
SHIFT SUMMARY PT EATING AND DRINKING, VOIDING. PT BEEN ASSISTED WITH ADL'S PRN. PT BEEN UP TO CHAIR. PT WORKED WITH THERAPY TODAY. PT BEEN MED PRN FOR PAIN. FAMILY IN/OUT OF ROOM. JAIL OFFICER BEEN WORKING WITH PT AND FAMILY FOR PLAN OF DISHCARGE.
[2019-03-10 05:20] LABS: BASOPHILS ABSOLUTE AUTO 0.02 K/mm3 (0.00-0.23); BASOPHILS PERCENT AUTO 0 % (0-2); EOSINOPHILS ABSOLUTE AUTO 0.26 K/mm3 (0.00-0.68); EOSINOPHILS PERCENT AUTO 3 % (0-6); Hematocrit 27.2 % (33.0-51.0); Hemoglobin 8.6 g/dL (11.5-16.0); IMMATURE GRAN ABSOLUTE AUTO 0.04 K/mm3 (0.00-0.10); IMMATURE GRAN PERCENT AUTO 0 % (0-1); LYMPHOCYTES ABSOLUTE AUTO 1.22 K/mm3 (0.84-5.20); LYMPHOCYTES PERCENT AUTO 13 % (21-46); MONOCYTES ABSOLUTE AUTO 1.01 K/mm3 (0.16-1.47); MONOCYTES PERCENT AUTO 11 % (4-13); Mean Corpuscular HGB 29.4 pg (26.0-34.0); Mean Corpuscular HGB Conc 31.6 g/dL (31.5-36.5); Mean Corpuscular Volume 93 fL (80-100); Mean Platelet Volume 8.9 fL (9.1-12.4); NEUTROPHILS ABSOLUTE AUTO 6.55 K/mm3 (1.96-9.15); NEUTROPHILS PERCENT AUTO 72 % (41-73); Platelet Count 358 K/mm3 (150-400); RDW Coefficient Variation 15.9 % (11.7-14.2); RDW Standard Deviation 53.6 fL (35.1-46.3); Red Blood Cell Count 2.93 M/mm3 (3.80-5.20)
[2019-03-10 05:40] LABS: Anion Gap 5 mmol/L (6-16); Blood Urea Nitrogen 11 mg/dL (8-24); Bun/Creatinine Ratio 16.3 (12.0-20.0); CO2, Blood 33 mmol/L (21-32); Calcium, Blood 8.4 mg/dL (8.5-10.1); Chloride, Blood 102 mmol/L (98-108); Creatinine, Blood 0.68 mg/dL (0.40-1.00); Glomerular Filtration Rate >60 (60-); Glucose, Blood 90 mg/dL (70-99); Potassium, Blood 4.1 mmol/L (3.5-5.5); Sodium, Blood 140 mmol/L (136-145)
--- NOTE | 2019-03-10 06:30 | NUR ---
SUMMARY: NEW COLOSTOMY AFTER COLON PERFORATION FOLLOWED BY HOSPITALIST AND DR. VERA. PT COLOSTOMY PUTTING OUT SOFT BROWN, LIQUID STOOL. PREVENA MIDLINE DRESSING C/D/I WITH MINIMAL SEROSANGINOUS OUTPUT. PT PAIN WELL CONTROLLED WITH 2 TABS NORCO, AND 20MG ROXANOL X2 THIS SHIFT. PT REPOSITIONS WELL WITH 2 ASSIST. PLAN TO DC HOME WITH HOME HEALTH/ HOSPICE TODAY TO HELP IMPROVE MOBILITY.
[2019-03-10] MEDS ORDERED: Norco 7.5-3251 EACH PO (09:20)
[2019-03-10] MEDS ORDERED: Fentanyl1 EACH TOP (09:20)
[2019-03-10] MEDS ORDERED: MORP20L SL (09:22)
[2019-03-10] MEDS ORDERED: OXYC10ER PO ×2 (09:23→11:49)
[2019-03-10] MEDS ORDERED: CEPACOL SORE T1 EACH MM (11:10)
[2019-03-10] MEDS ORDERED: LIDOCAINE HCL4 ML TOP (11:23)
[2019-03-10] MEDS ORDERED: LIDO5TO TOP (11:25)
[2019-03-10] MEDS ORDERED: METO25 PO (11:26)
[2019-03-10] MEDS ORDERED: ONDA4ODT MM (11:48)
[2019-03-10] MEDS ORDERED: PANT20 PO (11:49)
[2019-03-10] MEDS ORDERED: Florastor250 MG (11:50)
[2019-03-10] MEDS ORDERED: AMOCLA875 PO (11:50)
--- NOTE | 2019-03-10 11:50 | NUR ---
18G IV ON L WRIST DC'D, CATH INTACT. PT TO DC HOME TODAY.
[2019-03-10] MEDS ORDERED: Florastor250 MG PO (11:51)
--- NOTE | 2019-03-10 12:36 | NUR ---
DISCHARGE PT AND SPOUSE PROVIDED WITH WRITTEN AN VERBAL DISCHARGE INSTRUCTIONS. WRITTEN SCRIPTS PROVIDED TO PT'S . ABD BINDER PLACED FOR TRANSPORT/COMFORT TO HELP SECURE OSTOMY APPLIANCE. OSTOMY SUPPLIES SENT HOME WITH THE PATIENT. PT'S EDUCATED ABOUT OSTOMY SUPPLIES. HE WAS ALSO EDUCATED ABOUT CHANGING THE OSTOMY DRESSING DURING AM OSTOMY CHANGE. ATTENDS CHANGED PRIOR TO DISCHARGE. PT PROVIDED WITH PAIN MEDICATION PRIOR TO DISCHARGE. VSS. PT LEFT WITH [facility].
--- NOTE | 2019-03-10 12:41 | NUR ---
IV AND PICC LINE REMOVED BY HODA RICE.
== END 2019-03-10 12:25 | disposition hospice, home (50) | DRG 853 ==
LOC: ER 12:17 → ICUE 15:55 → EDBEDREQTM 16:12 → EDBEDREQ 16:12 → SURS 16:12 → ICUE 17:21 → SURS 02-23 14:18
PROVIDERS: Emergency Medicine; Family Medicine; Hospitalist; Internal Medicine; Internal Medicine Critical Care Medicine; Surgery; ADMIT Surgery
PROC: 02HV33Z Insertion of Infusion Device into Superior Vena Cava, Percutaneous Approach (ICD-10-PCS; 2019-02-16)
PROC: B548ZZA Ultrasonography of Superior Vena Cava, Guidance (ICD-10-PCS; 2019-02-16)
PROC: 3E043XZ Introduction of Vasopressor into Central Vein, Percutaneous Approach (ICD-10-PCS; 2019-02-16)
PROC: 5A1935Z Respiratory Ventilation, Less than 24 Consecutive Hours (ICD-10-PCS; 2019-02-16)
PROC: 0DTN0ZZ Resection of Sigmoid Colon, Open Approach (ICD-10-PCS; principal; 2019-02-16 16:30)
PROC: 0D1M0Z4 Bypass Descending Colon to Cutaneous, Open Approach (ICD-10-PCS; 2019-02-16 16:30)
PROC: 0WUF0JZ Supplement Abdominal Wall with Synthetic Substitute, Open Approach (ICD-10-PCS; 2019-03-06)
DX: A41.9 Sepsis, unspecified organism (principal); K63.1 Perforation of intestine (nontraumatic); K65.8 Other peritonitis; R65.21 Severe sepsis with septic shock; J95.2 Acute pulmonary insufficiency following nonthoracic surgery; J98.11 Atelectasis; T81.30XA Disruption of wound, unspecified, initial encounter; C18.9 Malignant neoplasm of colon, unspecified; Z51.5 Encounter for palliative care; Z87.891 Personal history of nicotine dependence; J44.9 Chronic obstructive pulmonary disease, unspecified; I95.9 Hypotension, unspecified; F40.298 Other specified phobia; E83.39 Other disorders of phosphorus metabolism; I48.0 Paroxysmal atrial fibrillation; D64.9 Anemia, unspecified; E87.6 Hypokalemia
CPT/HCPCS: 31720; 36415; 36430; 36556; 36569; 36600; 71045; 74177; 80048; 80053; 81001; 82728; 82803; 83540; 83550; 83605; 83690; 83735; 84100; 84132; 84484; 85007; 85014; 85018; 85025; 85027; 86850; 86900; 86901; 86923; 87040; 88309; 88341; 88342; 93005; 93010; 93306; 94003; 94640; 94660; 94667; 94760; 96361; 96365-59; 96375; 97110; 97116; 97162; 97167; 97530; 97535; 99285-25; A9270-GY; C1751; C1781; C9113; J0282; J1100; J1170; J1650; J1940; J2060; J2250; J2370; J2405; J2543; J2704; J2710; J3010; J3475; J3480; J7030; J7050; J7060; J7120; P9016; Q9967